=== PATIENT | male | born 1960 | race Caucasian/White ===

== ENCOUNTER 2018-05-20 16:17 | Emergency (ER) | payer SELFPAY ==
[2018-05-20] MEDS ORDERED: IBUPROFEN 800 MG TABLET PO ONE (17:00)
--- NOTE | 2018-05-20 17:33 | RADIOLOGY REPORT (SQ) ---
EXAM DESCRIPTION: HIP LEFT AP/LATERAL COMPLETED DATE/TIME: 05/20/2018 5:22 pm REASON FOR STUDY: pain COMPARISON: None. NUMBER OF VIEWS: Two views. TECHNIQUE: AP pelvis and additional frog-leg view of the left hip. LIMITATIONS: None. FINDINGS: MINERALIZATION: Normal. LEFT HIP: No fracture or dislocation. No worrisome bone lesions. RIGHT HIP: No fracture or dislocation. No worrisome bone lesions. PUBIS AND ISCHIUM: No fracture. PELVIS: No fracture. SACRUM: No fracture or dislocation. No worrisome bone lesions. LOWER LUMBAR SPINE: No fracture or dislocation. No worrisome bone lesions. No significant disc disea se. SOFT TISSUES: No findings. OTHER: No other significant finding. IMPRESSION: NEGATIVE STUDY OF THE LEFT HIP AND PELVIS. NO RADIOGRAPHIC EVIDENCE OF ACUTE INJURY. TECHNICAL DOCUMENTATION: JOB ID: [id number] [employer]- All Rights Reserved Reading location - IP/workstation name: [email or web address]
--- NOTE | 2018-05-20 17:56 | ER Document Report ---
ED Extremity Problem, Lower - General Chief Complaint: Hip Pain Stated Complaint: LEG PAIN Time Seen by Provider: 05/20/18 16:47 Primary Care Provider: [facility] [[facility]] - Follow up as needed GUS BUSCH [Primary Care Provider] - Follow up as needed Mode of Arrival: Ambulatory Information source: Patient Notes: 57-year-old male presented to ED for complaint of pain in his left hip and upper leg for the last 2-3 weeks. He states he is not had any injuries he does not know why he is hurting. Patient is alert oriented respirations regular and unlabored speaking in full sentences walks with a even steady gait. Patient states he does have some kind a history of a liver condition in the past but that was all cleared up and he does not have it anymore. TRAVEL OUTSIDE OF THE [place] IN LAST 30 DAYS: No - HPI Patient complains to provider of: Pain Location: Hip, Leg Occurred: Other - 2-3 weeks Onset/Duration: Gradual Quality of pain: Burning, Sharp Severity: Moderate Pain Level: 4 Recent injury: No Associated symptoms: Painful ambulation Exacerbated by: Movement, Walking Relieved by: Nothing - Related Data Allergies/Adverse Reactions: No Known Allergies Allergy (Verified 05/20/18 17:37) Past Medical History - General Information source: Patient - Social History Smoking Status: Current Every Day Smoker Cigarette use (# per day): Yes - Pack per day Chew tobacco use (# tins/day): No Smoking Education Provided: Yes - Minutes Frequency of alcohol use: Social Drug Abuse: Bath salts Occupation: Construction Lives with: Family Family History: Reviewed & Not Pertinent Patient has suicidal ideation: No Patient has homicidal ideation: No - Past Medical History Cardiac Medical History: Reports: None Pulmonary Medical History: Reports: None EENT Medical History: Reports: None Neurological Medical History: Reports: None Endocrine Medical History: Reports: None Renal/ Medical History: Reports: None Malignancy Medical History: Reports None GI Medical History: Reports: None Musculoskeletal Medical History: Reports Hx Musculoskeletal Trauma Skin Medical History: Reports None Psychiatric Medical History: Reports: None Traumatic Medical History: Reports: Hx Fractures - Ankle Infectious Medical History: Reports: None Past Surgical History: Reports: Hx Orthopedic Surgery - ankle - Immunizations Immunizations up to date: Yes Hx Diphtheria, Pertussis, Tetanus Vaccination: Yes Review of Systems - Review of Systems Constitutional: No symptoms reported EENT: No symptoms reported Cardiovascular: No symptoms reported Respiratory: No symptoms reported Gastrointestinal: No symptoms reported Genitourinary: No symptoms reported Male Genitourinary: No symptoms reported Musculoskeletal: Joint pain - Left hip/groin pain. denies: Joint swelling Skin: No symptoms reported Hematologic/Lymphatic: No symptoms reported Neurological/Psychological: No symptoms reported Physical Exam - Vital signs Vitals: Temp Pulse Resp BP Pulse Ox 98.4 F 94 16 194/99 H 99 05/20/18 16:36 05/20/18 16:36 05/20/18 16:36 05/20/18 16:36 05/20/18 16:36 Interpretation: Hypertensive - General General appearance: Appears well, Alert - HEENT Head: Normocephalic, Atraumatic Eyes: Normal Pupils: PERRL - Respiratory Respiratory status: No respiratory distress Chest status: Nontender Breath sounds: Normal Chest palpation: Normal - Cardiovascular Rhythm: Regular Heart sounds: Normal auscultation Murmur: No - Abdominal Inspection: Normal Distension: No distension Bowel sounds: Normal Tenderness: Nontender Organomegaly: No organomegaly - Back Back: Normal, Nontender - Extremities General upper extremity: Normal inspection, Nontender, Normal color, Normal ROM, Normal temperature General lower extremity: Normal inspection, Nontender, Normal color, Normal ROM, Normal temperature, Normal weight bearing. No: Evon's sign Hip: Tender, Pain with ROM, Other - Patient's pain is at the site of his bursa. No: Unable to bear weight Thigh: Normal Knee: Normal Calf: Normal Ankle: Normal Foot: Normal - Neurological Neuro grossly intact: Yes Cognition: Normal Orientation: AAOx4 Walton Coma Scale Eye Opening: Spontaneous Clarisse Coma Scale Verbal: Oriented Walton Coma Scale Motor: Obeys Commands Walton Coma Scale Total: 15 Speech: Normal Motor strength normal: LUE, RUE, LLE, RLE Sensory: Normal - Psychological Associated symptoms: Normal affect, Normal mood - Skin Skin Temperature: Warm Skin Moisture: Dry Skin Color: Normal Course - Vital Signs Vital signs: Temp Pulse Resp BP Pulse Ox 97.9 F 88 16 184/96 H 100 05/20/18 17:57 05/20/18 17:57 05/20/18 17:57 05/20/18 17:57 05/20/18 17:57 - Diagnostic Test Radiology reviewed: Image reviewed, Reports reviewed Discharge - Discharge Clinical Impression: Left hip pain Condition: Stable Disposition: HOME, SELF-CARE Instructions: Family Physicians / Practices Additional Instructions: Bursitis You have been diagnosed as having bursitis. Bursitis is an inflammation of a fluid pouch (bursa) found near joints. This is usually due to repeated minor irritation, or pressure directly on the bursa. On occasion, the bursitis can be due to infection (your doctor has checked for this). Sometimes the doctor decides to remove the fluid from the bursa with a needle. This may be to examine the fluid for infection or to ease the pressure caused by the fluid. The usual treatment is rest, local warmth, (or cold if the bursitis is caused by an acute injury), and antiinflammatory medication. Occasionally, an injection of cortisone is necessary. You should call the doctor for re-examination if the pain increases significantly, or if the area becomes severely swollen and red, or fever develops. Anti-Inflammatory Medication You have received a prescription for an antiinflammatory agent. This is an excellent, safe drug for pain control. In addition, it has potent antiinflammatory effects which are beneficial, especially in the treatment of injuries, arthritis, or tendonitis. It's best to take this medicine with food. Persons with ulcer disease or allergy to aspirin should notify their physician of this before taking this drug. Take the medication exactly as prescribed. Don't take additional doses unless instructed to do so by your doctor. If you develop wheezing, shortness of breath, hives, faintness, stomach pain, vomiting, or dark black stools, return for re-evaluation at once. Ice Packs Apply ice packs frequently against the painful area. Many different schedules are recommended, such as "20 minutes on, 20 minutes off" or "one hour ice, two hours rest." If you need to work, you may need to go longer between ice treatments. You should plan to have the area ice packed AT LEAST one fourth of the time. The ice should be applied over the wrap, tape, or splint, or over a layer of cloth -- not directly against the skin. Some ice bags have a built-in cloth and can be put directly on the skin. Warm Packs After approximately two days, apply gentle heat (such as a heating pad or hot water bottle) for about 20 to 30 minutes about every two hours -- at least four times daily. Warmth and elevation will help you make a more rapid recovery, and will ease the pain considerably. Do not use HOT heat, and never apply heat for longer than 30 minutes. The continuous heat can invisibly damage skin and muscles -- even when no burn is seen on the surface. Damaged muscles can make you MORE sore. FOLLOW-UP CARE: If you have been referred to a physician for follow-up care, call the physicians office for an appointment as you were instructed or within the next two days. If you experience worsening or a significant change in your symptoms, notify the physician immediately or return to the Emergency Department at any time for re-evaluation. Forms: Elevated Blood Pressure, Smoking Cessation Education, Return to Work Referrals: NARAYAN,NO [Primary Care Provider] - Follow up as needed [facility] [Provider [facility]] - Follow up as needed
[2018-05-20 17:59] VITALS: BP 184/96
== END 2018-05-20 18:17 | disposition home or self-care (01) ==
LOC: ER 16:17
DX: M25.552 Pain in left hip (principal); M79.605 Pain in left leg; F17.210 Nicotine dependence, cigarettes, uncomplicated
CPT/HCPCS: 99283

== ENCOUNTER 2018-06-09 17:35 | Emergency (ER) | payer SELFPAY ==
[2018-06-09 19:36] LABS: ABSOLUTE EOSINOPHILS # (AUTO) 0.1 10^3/uL (0.0-0.6); ABSOLUTE LYMPHOCYTES (AUTO) 0.4 10^3/uL (0.5-4.7); ABSOLUTE MONOCYTES (AUTO) 0.5 10^3/uL (0.1-1.4); ABSOLUTE NEUT (AUTO) 3.6 10^3/uL (1.7-8.2); BASOPHILS % (AUTO) 0.7 % (0-2); HEMATOCRIT 44.5 % (37.9-51.0); HEMOGLOBIN 15.2 g/dL (13.5-17.0); LYMPHOCYTES % (AUTO) 9.3 % (13-45); MEAN CORPUSCULAR HEMOGLOBIN 31.6 pg (27.0-33.4); MEAN CORPUSCULAR HGB CONC 34.2 g/dL (32.0-36.0); MEAN CORPUSCULAR VOLUME 92 fl (80-97); MONOCYTES % (AUTO) 9.8 % (3-13); RED BLOOD COUNT 4.83 10^6/uL (4.35-5.55); RED CELL DISTRIBUTION WIDTH 14.1 % (11.5-14.0); SEGMENTED NEUTROPHILS % (AUTO) 78.2 % (42-78); TOTAL CELLS COUNTED % (AUTO) 100 %; WHITE BLOOD COUNT 4.6 10^3/uL (4.0-10.5)
[2018-06-09 19:48] LABS: ALANINE AMINOTRANSFERASE 161 U/L (21-72); ALBUMIN 3.6 g/dL (3.5-5.0); ALKALINE PHOSPHATASE 120 U/L (38-126); ANION GAP 10 (5-19); ASPARTATE AMINO TRANSFERASE 123 U/L (17-59); BILIRUBIN,DIRECT 0.2 mg/dL (0.0-0.4); BILIRUBIN,TOTAL 0.6 mg/dL (0.2-1.3); BLOOD UREA NITROGEN 27 mg/dL (7-20); CALCIUM 9.5 mg/dL (8.4-10.2); CARBON DIOXIDE 23 mmol/L (22-30); CHLORIDE 106 mmol/L (98-107); GLUCOSE 185 mg/dL (75-110); POTASSIUM 4.2 mmol/L (3.6-5.0); SODIUM 139.2 mmol/L (137-145)
[2018-06-09 19:52] LABS: PLATELET COUNT 66 10^3/uL (150-450)
--- NOTE | 2018-06-09 19:56 | RADIOLOGY REPORT (SQ) ---
EXAM DESCRIPTION: HIP LEFT AP/LATERAL COMPLETED DATE/TIME: 06/09/2018 7:46 pm REASON FOR STUDY: left hip pain COMPARISON: 05/20/2018 NUMBER OF VIEWS: Two views. TECHNIQUE: AP pelvis and additional frog-leg view of the left hip. LIMITATIONS: None. FINDINGS: MINERALIZATION: Normal. LEFT HIP: There is no fracture. There is some vague lucency in the intertrochanteric region. This i s of undetermined significance. RIGHT HIP: Cystic changes. These appear to be benign. Mild degenerative changes of the hip. PUBIS AND ISCHIUM: No fracture. PELVIS: No fracture. SACRUM: No fracture or dislocation. No worrisome bone lesions. LOWER LUMBAR SPINE: No fracture or dislocation. No worrisome bone lesions. No significant disc disea se. SOFT TISSUES: No findings. OTHER: No other significant finding. IMPRESSION: There is some vague lucency in the intertrochanteric region of the left hip of uncertain significance. Recommend CT or MRI. TECHNICAL DOCUMENTATION: JOB ID: [id number] [employer]- All Rights Reserved Reading location - IP/workstation name: [email or web address]
--- NOTE | 2018-06-09 19:57 | RADIOLOGY REPORT (SQ) ---
EXAM DESCRIPTION: ABDOMEN 2 VIEWS COMPLETED DATE/TIME: 06/09/2018 7:46 pm REASON FOR STUDY: abd pain, constipation COMPARISON: None. NUMBER OF VIEWS: Two views. TECHNIQUE: Supine and erect/decubitus radiographic images of the abdomen acquired. LIMITATIONS: None. FINDINGS: FREE AIR: None. No abnormal gas collections. LUNG BASES: Clear. BOWEL GAS PATTERN: Nonobstructive pattern. No dilated loops or air fluid levels. CALCIFICATIONS: No suspicious calcifications. SOFT TISSUES: No gross mass or suggestion of organomegaly. HARDWARE: None in the abdomen. BONES: No acute fracture. No worrisome bone lesions. OTHER: No other significant finding. IMPRESSION: NO RADIOGRAPHIC EVIDENCE FOR ACUTE ABDOMINAL DISEASE. No constipation. TECHNICAL DOCUMENTATION: JOB ID: [id number] [employer]- All Rights Reserved Reading location - IP/workstation name: [email or web address]
--- NOTE | 2018-06-09 20:20 | ER Document Report ---
ED General - General Chief Complaint: Constipation Stated Complaint: HIP PAIN/CONSTIPATION Time Seen by Provider: 06/09/18 19:06 Notes: Patient is a 57-year-old male with a past medical history of alpha-1 antitrypsin deficiency with known liver abnormalities although has never been formally diagnosed with liver failure cirrhosis, presents with 2 distinct complaints. His first complaint is that he has had 1 month of left hip pain. He was seen in the emergency room and approximately 20 days ago for the same, diagnosed the left hip bursitis. He states that the pain has however been getting worse and at this point he can hardly walk secondary to the pain in the left hip. This is described as a throbbing, constant, aching pain worsened by any weightbearing. He also notes that for the past 1 month he has had increasing abdominal swelling and fullness. He states that it is a global, cramping, aching pain worsened by coughing, moving or pushing on the abdomen. He notes associated nausea and decreased bowel movements but has not had any vomiting. Denies fever or constitutional symptoms. He denies any history of similar symptoms in the past. He does not have a primary care doctor. Denies melena, hematochezia or hematemesis. TRAVEL OUTSIDE OF THE [place] IN LAST 30 DAYS: No - Related Data Allergies/Adverse Reactions: No Known Allergies Allergy (Verified 05/20/18 17:37) Past Medical History - General Information source: Patient - Social History Smoking Status: Current Every Day Smoker Frequency of alcohol use: None Drug Abuse: None Lives with: Spouse/Significant other Family History: Reviewed & Not Pertinent Patient has suicidal ideation: No Patient has homicidal ideation: No Endocrine Medical History: Denies: Hx Diabetes Mellitus Type 1, Hx Diabetes Mellitus Type 2 Renal/ Medical History: Denies: Hx Peritoneal Dialysis Musculoskeletal Medical History: Reports Hx Musculoskeletal Trauma Traumatic Medical History: Reports: Hx Fractures - Ankle Past Surgical History: Reports: Hx Orthopedic Surgery - ankle - Immunizations Immunizations up to date: Yes Hx Diphtheria, Pertussis, Tetanus Vaccination: Yes Review of Systems - Review of Systems Notes: Constitutional: Negative for fever. HENT: Negative for sore throat. Eyes: Negative for visual changes. Cardiovascular: Negative for chest pain. Respiratory: Negative for shortness of breath. Gastrointestinal: Positive for abdominal pain, swelling and fullness Genitourinary: Negative for dysuria. Musculoskeletal: Positive for left hip pain Skin: Negative for rash. Neurological: Negative for headaches, weakness or numbness. 10 point ROS negative except as marked above and in HPI. Physical Exam - Vital signs Vitals: Temp Pulse Resp BP Pulse Ox 98.1 F 97 20 166/108 H 96 06/09/18 18:00 06/09/18 18:00 06/09/18 18:00 06/09/18 18:00 06/09/18 18:00 Interpretation: Hypertensive Notes: PHYSICAL EXAMINATION: GENERAL: Appears older than stated age, in no acute distress HEAD: Atraumatic, normocephalic. EYES: Pupils equal round and reactive to light, extraocular movements intact, sclera anicteric, conjunctiva are normal. ENT: nares patent, oropharynx clear without exudates. Moderately dry mucous membranes. NECK: Normal range of motion, supple without lymphadenopathy LUNGS: Breath sounds clear to auscultation bilaterally and equal. No wheezes rales or rhonchi. HEART: Regular rate and rhythm without murmurs ABDOMEN: Somewhat distended, protuberant abdomen. No focal tenderness, rebound or guarding. EXTREMITIES: Normal range of motion, pain on palpation of the inguinal crease on the left as well as palpation of the left hip joint. Pain with axial loading of the left hip. Extremity exam otherwise unremarkable. NEUROLOGICAL: No focal neurological deficits. Moves all extremities spontaneously and on command. PSYCH: Normal mood, normal affect. SKIN: Warm, Dry, normal turgor, no rashes or lesions noted. Course - Re-evaluation Re-evalutation: 06/09/18 20:20 Patient presents with swelling of the abdomen worrisome for development of ascites in the setting of liver failure secondary to alpha-1 antitrypsin deficiency as well as left hip pain. The x-ray of the left hip shows an abnormal lucency in the hip joint itself and a CT will be obtained to better clarify. Will also obtain a CT of the abdomen and pelvis to further clarify the patient abdominal swelling and pain. Initial laboratories show LFT derangements, no significant bilirubin derangements. Thrombocytopenia also noted consistent with liver failure. 06/10/18 00:21 CT scan of the abdomen and pelvis as well as of the chest and hip unfortunately shows a picture consistent with metastatic cancer undifferentiated at this point of the likely primary from liver or lung. I have discussed the case with Dr. Bhandari the oncologist geographic information systems engineer who will follow the patient up in clinic in the coming days. I have also reviewed the results with the patient and informed him of the need for outpatient oncology follow-up. Per imitations of the oncologist have added on PSA and CEA levels. I have also placed a request for social work. At this time will discharge with return precautions and follow-up recommendations. Verbal discharge instructions given a the bedside and opportunity for questions given. Medication warnings reviewed. Patient is in agreement with this plan and has verbalized understanding of return precautions and the need for oncology follow-up within the next 24-48 hours. - Vital Signs Vital signs: Temp Pulse Resp BP Pulse Ox 98.1 F 97 20 166/108 H 96 06/09/18 18:00 06/09/18 18:00 06/09/18 18:00 06/09/18 18:00 06/09/18 18:00 - Laboratory Result Diagrams: 06/09/18 19:22 06/09/18 19:22 Laboratory results interpreted by me: 06/09/18 06/09/18 19:22 19:22 RDW 14.1 H Plt Count 66 L Seg Neutrophils % 78.2 H Lymphocytes % 9.3 L Absolute Lymphocytes 0.4 L BUN 27 H Glucose 185 H AST 123 H ALT 161 H - Diagnostic Test Radiology reviewed: Image reviewed, Reports reviewed Discharge - Discharge Clinical Impression: Lytic bone lesion of left femur, Liver masses, Lung mass, Abdominal swelling, generalized Condition: Fair Disposition: HOME, SELF-CARE Additional Instructions: Your workup today unfortunately suggest that you have metastatic cancer. I am very sorry to tell you this. You need to follow-up with the oncology clinic ideally tomorrow or the next day. I have already spoken tonight to Dr. Reba Bhandari who wants you to come to her office tomorrow or the next day for follow- up. Our social work will also contact you to help you try to arrange initiation of getting Medicaid. You have also been sent home with pain medication to use as needed for your left hip pain. Return if you have uncontrolled pain, persistent vomiting, pass out, or have any other symptoms that are worrisome to you. Referrals: REBA BHANDARI MD [ACTIVE STAFF] - Follow up tomorrow
--- NOTE | 2018-06-09 21:47 | RADIOLOGY REPORT (SQ) ---
EXAM DESCRIPTION: CT ABDOMEN PELVIS WITH IV CONTRAST COMPLETED DATE/TME: 06/09/2018 20:15 CLINICAL HISTORY: 57 years Male abdominal swelling, pain COMPARISON: None. TECHNIQUE: Contiguous axial images obtained through the abdomen and pelvis following IV contrast. Reformatted images obtained. This exam was performed according to our department optimization program which includes automated exposure control, adjustment of the mA and/or kv according to patient size and/or use of iterative reconstruction technique. FINDINGS: The liver is enlarged measuring 21.5 cm. There are multiple hepatic masses as well as diffuse fatty infiltration with areas of focal fatty sparing. Mass in the inferior aspect of the medial left lobe on image 27 measures 3.2 x 3.3 cm. Suspect additional masses in the left lobe more superiorly. Mass in the dome measures approximately 4.3 x 4.6 cm. Suspect additional masses may be present in the inferior lateral left lobe. Spleen is enlarged measuring 16.3 cm. No discrete pancreatic mass or pancreatic abnormality. No adrenal masses. The kidneys appear unremarkable. No hydronephrosis. The gallbladder is visualized. No evidence aortic aneurysm. There are numerous scattered prominent upper abdominal retroperitoneal and periportal lymph nodes. No bowel obstruction. The appendix is unremarkable. There is no evidence of free fluid in the pelvis. Diverticulosis without evidence of diverticulitis. There is a large lytic lesion in the proximal aspect of the left femur involving the neck and the intertrochanteric region with some cortical irregularity and destruction and a small associated soft tissue component. Findings are highly concerning for neoplasm and may reflect metastatic disease. An etiology such as lymphoma should also be considered IMPRESSION: Hepatic masses concerning for metastatic disease Splenic enlargement Scattered retroperitoneal upper abdominal lymphadenopathy which is nonspecific Lytic lesion with some cortical destruction and associated soft tissue component in the proximal left femur also concerning for neoplasm. Additional etiologies such as plasmacytoma or lymphoma not excluded.
--- NOTE | 2018-06-09 21:49 | RADIOLOGY REPORT (SQ) ---
EXAM DESCRIPTION: CT LOWER EXTREMITY WITHOUT IV CONTRAST COMPLETED DATE/TME: 06/09/2018 20:15 CLINICAL HISTORY: 57 years Male left hip xray abn, pain COMPARISON: None. TECHNIQUE: Contiguous axial CT images obtained through the left hip without IV contrast. Reformatted images obtained. This exam was performed according to our department optimization program which includes automated exposure control, adjustment of the mA and/or kv according to patient size and/or use of iterative reconstruction technique. FINDINGS: There is a large lytic area in the proximal femur involving the neck and intertrochanteric region with areas of cortical irregularity and destruction. There appears to be an associated soft tissue component anteriorly. Findings are highly suspicious for malignancy and may reflect metastatic disease. Mild narrowing of the joint space with subchondral sclerosis and cyst formation. Acetabulum and visualized segments of the inferior and superior pubic rami also appear intact. IMPRESSION: Large lytic lesion with associated cortical destruction and soft tissue component involving the proximal aspect of the femur. Findings are highly suspicious for malignancy and may reflect metastatic disease.. A definite pathologic fracture is not observed
--- NOTE | 2018-06-09 22:54 | RADIOLOGY REPORT (SQ) ---
EXAM DESCRIPTION: CT CHEST WITHOUT IV CONTRAST COMPLETED DATE/TME: 06/09/2018 22:01 CLINICAL HISTORY: 57 years, Male, malignancy, eval lung mass hx smoking COMPARISON: None. TECHNIQUE: 322 Images stored on PACS. All CT scanners at this facility use dose modulation, iterative reconstruction, and/or weight based dosing when appropriate to reduce radiation dose to as low as reasonably achievable (ALARA). [facility]: Dose Right [facility]: CareDose [facility]: Dose Right [facility]: Teradose 4D [facility]: [employer] LIMITATIONS: None. FINDINGS: No gross evidence for mediastinal or hilar adenopathy. The heart and pericardium are unremarkable. Small hiatal hernia. Limited evaluation of the upper abdomen shows splenomegaly at 15 cm. Probable fatty infiltrative change to the liver. Osseous structures are grossly intact. No pneumothorax. Severe emphysematous changes in the upper lobes and apices. Nodular irregular focus in the right lung apex measuring 11 x 17 x 6 mm. Linear extension to the pleural surface. No effusion. Lungs are otherwise clear. Airways are patent IMPRESSION: Severe emphysematous changes in the upper lobes and apices. Nodular focus in the right lung apex with linear extensions to the pleural surface. The nodular component measures approximately 11 x 17 x 6 mm. Please refer to below follow-up criteria. Small hiatal hernia. 2017 Fleischner Society Recommendations for Single Solid Lung Nodule Follow-Up based on size (average of long- and short-axis diameters) <6 mm Low-Risk Patient: No routine follow-up <6 mm High-Risk Patient: Optional CT at 12 months 6-8 mm Low-Risk Patient: CT at 6-[address] at 18-24 months 6-8 mm High-Risk Patient: CT at 6-[address] at 18-24 months >8 mm Low-Risk Patient: Consider CT, PET/CT or tissue sampling at 3 months >8 mm High-Risk Patient: Same as for low-risk patient . TECHNICAL DOCUMENTATION: Quality ID # [id number]: Final reports with documentation of one or more dose reduction techniques (e.g., Automated exposure control, adjustment of the mA and/or kV according to patient size, use of iterative reconstruction technique) copyright 2011 [employer]- All Rights Reserved
[2018-06-10] MEDS ORDERED: ONDANSETRON ODT 4 MG TAB (6 TAB/ER DISP) PO PRN (00:26)
[2018-06-10] MEDS ORDERED: HYDROCODONE/ACETAMINOPHEN 5-325 MG (6 TAB/ER DISP) PO PRN (00:26)
[2018-06-10] MEDS ORDERED: OXYCODONE-ACETAMINOPHEN 5-325 MG TABLET PO ONE (01:13)
[2018-06-10 01:26] LABS: CARCINOEMBRYONIC ANTIGEN 1.2 ng/mL (<3.0)
[2018-06-10 01:48] VITALS: BP 186/97
== END 2018-06-10 01:48 | disposition home or self-care (01) ==
LOC: ER 17:35
DX: M89.9 Disorder of bone, unspecified (principal); K76.89 Other specified diseases of liver; R91.8 Other nonspecific abnormal finding of lung field; R19.07 Generalized intra-abdominal and pelvic swelling, mass and lump; K59.00 Constipation, unspecified; M25.552 Pain in left hip; F17.200 Nicotine dependence, unspecified, uncomplicated
CPT/HCPCS: 36415; 71250; 74019; 74177; 80053; 82378; 84153; 85025; 99284

== ENCOUNTER 2018-06-13 08:50 | Day surgery (SDC) | payer SELFPAY ==
[2018-06-13 09:57] LABS: HEMATOCRIT 41.1 % (37.9-51.0); HEMOGLOBIN 14.2 g/dL (13.5-17.0); MEAN CORPUSCULAR HEMOGLOBIN 31.7 pg (27.0-33.4); MEAN CORPUSCULAR HGB CONC 34.6 g/dL (32.0-36.0); MEAN CORPUSCULAR VOLUME 92 fl (80-97); RED BLOOD COUNT 4.49 10^6/uL (4.35-5.55); RED CELL DISTRIBUTION WIDTH 13.7 % (11.5-14.0); WHITE BLOOD COUNT 3.2 10^3/uL (4.0-10.5)
[2018-06-13 09:58] LABS: INTERNATIONAL RATION (INR) 0.95; PROTHROMBIN TIME 13.2 SEC (11.4-15.4)
[2018-06-13 09:59] LABS: PARTIAL THROMBOPLASTIN TIME 34.3 SEC (23.5-35.8)
[2018-06-13 10:24] LABS: BLOOD UREA NITROGEN 21 mg/dL (7-20)
[2018-06-13 10:29] LABS: PLATELET COUNT 65 10^3/uL (150-450)
[2018-06-13] MEDS ORDERED: FENTANYL CITRATE INJ/PF 100 MCG/2 ML AMPUL ONE (11:02)
[2018-06-13] MEDS ORDERED: BUPIVACAINE HCL 0.5 % INJ/PF 30 ML SDV ONE (11:03)
--- NOTE | 2018-06-13 12:40 | RADIOLOGY REPORT (SQ) ---
EXAM DESCRIPTION: CT BIOPSY BONE DEEP; CT NEEDLE PLACEMENT COMPLETED DATE/TIME: 06/13/2018 12:01 pm REASON FOR STUDY: LYTIC LESION IN FEMUR; LYTIC LESION IN FEMUR, BONE BIOPSY K76.9 LIVER DISEASE, UN SPECIFIED R91.1 SOLITARY PULMONARY NODULE M89.9 DISORDER OF BONE, UNSPECIFIED COMPARISON: None. TECHNIQUE: CT guided biopsy of the lytic destructive bony lesion in the left femoral neck performed with conscious sedation. CT Fluoroscopy Time: 1.[address] scanners at this facility use dose modulation, iterative reconstruction, and/or weight based d osing when appropriate to reduce radiation dose to as low as reasonably achievable (ALARA). [facility]: Dose Right [facility]: CareDose [facility]: Dose Right [facility]: Teradose 4D [facility]: I [employer] RADIATION DOSE: mGy. FINDINGS: After obtaining informed consent and explaining the risks and benefits of conscious sedati on,the patient agreed to the procedure. Prior to the procedure, a time out was performed to verify th e patient's identity and planned procedure. IV pain control was administered and physician direction by the registered nurse using 125 micrograms of fentanyl. Physiologic monitoring was provided before, during, and after sedation. The total sedat ion time was 30 minutes. Documentation face to face time, the performing proceduralist, spent monitoring the patient: [address] scanning was performed to localize the percutaneous site for the biopsy approach. After sterile skin prep and local lidocaine for skin and deep tissue anesthesia, a coaxial 18 gauge b iopsy needle was used to obtain multiple cores of tissue. No immediate post procedure complications. The biopsy tissue was submitted to the lab in formalin. There were no immediate complications. Pathology is pending at the time of dictation. IMPRESSION: CT GUIDED BIOPSY OF THE LEFT PROXIMAL FEMUR LYTIC LESION PERFORMED WITHOUT IMMEDIATE COM PLICATION. PATHOLOGY PENDING. COMMENT: Quality ID 145: Final reports for procedures using fluoroscopy that document radiation exp osure indices, or exposure time and number of fluorographic images (if radiation exposure indices are not available) Patient medication list reviewed: Yes- Quality ID# [id number]:Eligible professional attests to documenting i n the medical record they obtained, updated, or reviewed the patient's current medications.. TECHNICAL DOCUMENTATION: JOB ID: [id number] Quality ID# [id number]: Final reports with documentation of one or more dose reduction techniques (e.g., Aut omated exposure control, adjustment of the mA and/or kV according to patient size, use of iterative r econstruction technique) 2010 [employer]- All Rights Reserved Reading location - IP/workstation name: [email or web address]
--- NOTE | 2018-06-13 12:40 | RADIOLOGY REPORT (SQ) ---
EXAM DESCRIPTION: CT BIOPSY BONE DEEP; CT NEEDLE PLACEMENT COMPLETED DATE/TIME: 06/13/2018 12:01 pm REASON FOR STUDY: LYTIC LESION IN FEMUR; LYTIC LESION IN FEMUR, BONE BIOPSY K76.9 LIVER DISEASE, UN SPECIFIED R91.1 SOLITARY PULMONARY NODULE M89.9 DISORDER OF BONE, UNSPECIFIED COMPARISON: None. TECHNIQUE: CT guided biopsy of the lytic destructive bony lesion in the left femoral neck performed with conscious sedation. CT Fluoroscopy Time: 1.[address] scanners at this facility use dose modulation, iterative reconstruction, and/or weight based d osing when appropriate to reduce radiation dose to as low as reasonably achievable (ALARA). [facility]: Dose Right [facility]: CareDose [facility]: Dose Right [facility]: Teradose 4D [facility]: AVST RADIATION DOSE: mGy. FINDINGS: After obtaining informed consent and explaining the risks and benefits of conscious sedati on,the patient agreed to the procedure. Prior to the procedure, a time out was performed to verify th e patient's identity and planned procedure. IV pain control was administered and physician direction by the registered nurse using 125 micrograms of fentanyl. Physiologic monitoring was provided before, during, and after sedation. The total sedat ion time was 30 minutes. Documentation face to face time, the performing proceduralist, spent monitoring the patient: [address] scanning was performed to localize the percutaneous site for the biopsy approach. After sterile skin prep and local lidocaine for skin and deep tissue anesthesia, a coaxial 18 gauge b iopsy needle was used to obtain multiple cores of tissue. No immediate post procedure complications. The biopsy tissue was submitted to the lab in formalin. There were no immediate complications. Pathology is pending at the time of dictation. IMPRESSION: CT GUIDED BIOPSY OF THE LEFT PROXIMAL FEMUR LYTIC LESION PERFORMED WITHOUT IMMEDIATE COM PLICATION. PATHOLOGY PENDING. COMMENT: Quality ID 145: Final reports for procedures using fluoroscopy that document radiation exp osure indices, or exposure time and number of fluorographic images (if radiation exposure indices are not available) Patient medication list reviewed: Yes- Quality ID# [id number]:Eligible professional attests to documenting i n the medical record they obtained, updated, or reviewed the patient's current medications.. TECHNICAL DOCUMENTATION: JOB ID: [id number] Quality ID# [id number]: Final reports with documentation of one or more dose reduction techniques (e.g., Aut omated exposure control, adjustment of the mA and/or kV according to patient size, use of iterative r econstruction technique) 2010 [employer]- All Rights Reserved Reading location - IP/workstation name: [email or web address]
[2018-06-13 13:26] VITALS: BP 166/91
== END 2018-06-13 13:05 | disposition home or self-care (01) ==
LOC: RAD 08:50
PROVIDERS: ATTEND Internal Medicine Medical Oncology
DX: C79.51 Secondary malignant neoplasm of bone (principal); R91.1 Solitary pulmonary nodule; K76.9 Liver disease, unspecified; F17.210 Nicotine dependence, cigarettes, uncomplicated; K59.00 Constipation, unspecified
CPT/HCPCS: 36415; 84520; 82565; 85027; 85610; 85730; 88342 ×2; 88341 ×2; 88305 ×2; 88313 ×2; 77012; 20225; J3490; J3010

== ENCOUNTER → 2018-06-24 | Outpatient (CLI) | payer SELFPAY ==
--- NOTE | 2018-06-24 16:33 | RADIOLOGY REPORT (SQ) ---
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 NUMBER OF VIEWS: Two views. TECHNIQUE: Two radiographic images acquired of the left femur to include hip and knee in at least on e projection. LIMITATIONS: None. FINDINGS: MINERALIZATION: There is heterogeneous mineralization in the intertrochanteric region of t he left hip. BONES: No acute fracture. No worrisome bone lesions. SOFT TISSUES: No obvious swelling or foreign body. OTHER: No other significant finding. IMPRESSION: Cannot exclude metastatic disease in the left hip. Consider bone scan for further evalu ation. TECHNICAL DOCUMENTATION: JOB ID: [id number] [employer]- All Rights Reserved Reading location - IP/workstation name: [email or web address]
--- NOTE | 2018-06-24 16:35 | RADIOLOGY REPORT (SQ) ---
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 NUMBER OF VIEWS: Two views. TECHNIQUE: AP pelvis and additional frog-leg view of the left hip. LIMITATIONS: None. FINDINGS: MINERALIZATION: Normal. LEFT HIP: Once again there is heterogeneous mineralization in the left hip. Cannot exclude nondispla zhane fracture of the greater trochanter. RIGHT HIP: There are areas of lucency in the femoral neck. PUBIS AND ISCHIUM: No fracture. PELVIS: No fracture. SACRUM: No fracture or dislocation. No worrisome bone lesions. LOWER LUMBAR SPINE: No fracture or dislocation. No worrisome bone lesions. No significant disc disea se. SOFT TISSUES: No findings. OTHER: No other significant finding. IMPRESSION: Cannot exclude neoplastic changes in the left hip. Cannot exclude fracture of the great er trochanter. There are areas of lucency in the right femoral neck. TECHNICAL DOCUMENTATION: JOB ID: [id number]- All Rights Reserved Reading location - IP/workstation name: [email or web address]
== END ==
LOC: RAD 14:29
PROVIDERS: ATTEND Radiology Radiation Oncology
DX: C79.51 Secondary malignant neoplasm of bone (principal)

== ENCOUNTER 2018-06-25 14:24 | Inpatient (IN) | payer SELFPAY ==
--- NOTE | 2018-06-25 15:21 | ER Document Report ---
ED Medical Screen (RME) - General Chief Complaint: Leg Pain Stated Complaint: LEFT LEG PAIN Time Seen by Provider: 06/25/18 15:11 Mode of Arrival: Wheelchair Information source: Patient, Relative Notes: Patient presents emergency department with complaints of severe left leg pain. Patient reports recently diagnosed with hepatic cancer metastasized. Reports he was at oncology receiving radiation therapy and they told him to come here due to the pain. X-ray was attempted yesterday without results because patient was unable to position himself. Patient reports he is here for the pain he is taking morphine p.o. Consult to Dr. Conner she advises IV Dilaudid for pain and place patient in a bed for full evaluation. I have greeted and performed a rapid initial assessment of this patient. A comprehensive ED assessment and evaluation of the patient, analysis of test results and completion of the medical decision making process will be conducted by additional ED providers. TRAVEL OUTSIDE OF THE [place] IN LAST 30 DAYS: No - Related Data Allergies/Adverse Reactions: No Known Allergies Allergy (Verified 06/25/18 14:26) Past Medical History - Social History Frequency of alcohol use: Social Drug Abuse: None - Past Medical History Cardiac Medical History: Denies: Hx Coronary Artery Disease, Hx Heart Attack, Hx Hypertension Pulmonary Medical History: Denies: Hx Asthma, Hx Bronchitis, Hx COPD, Hx Pneumonia Neurological Medical History: Denies: Hx Cerebrovascular Accident, Hx Seizures Endocrine Medical History: Denies: Hx Diabetes Mellitus Type 1, Hx Diabetes Mellitus Type 2 Renal/ Medical History: Denies: Hx Peritoneal Dialysis Musculoskeltal Medical History: Denies Hx Arthritis, Reports Hx Musculoskeletal Trauma Traumatic Medical History: Reports: Hx Fractures - Ankle Past Surgical History: Reports: Hx Orthopedic Surgery - R ankle - Immunizations Immunizations up to date: Yes Hx Diphtheria, Pertussis, Tetanus Vaccination: Yes History of Influenza Vaccine for 12/2016 - 05/2017 Season: No Physical Exam - Vital signs Vitals: Temp Pulse Resp BP Pulse Ox 97.9 F 88 18 160/94 H 94 06/25/18 14:31 06/25/18 14:31 06/25/18 14:31 06/25/18 14:31 06/25/18 14:31 Course - Vital Signs Vital signs: Temp Pulse Resp BP Pulse Ox 97.9 F 88 18 160/94 H 94 06/25/18 14:31 06/25/18 14:31 06/25/18 14:31 06/25/18 14:31 06/25/18 14:31
[2018-06-25] MEDS ORDERED: HYDROMORPHONE HCL INJ/PF 2 MG/ML AMPULE IV ONE ×3 (15:27→19:45)
--- NOTE | 2018-06-25 18:18 | ER Document Report ---
ED Extremity Problem, Lower - General Chief Complaint: Leg Pain Stated Complaint: LEFT LEG PAIN Time Seen by Provider: 06/25/18 18:17 Mode of Arrival: Wheelchair Information source: Patient, Relative Notes: HISTORY OF PRESENT ILLNESS: Patient is a 57-year-old male with a past medical history of alpha-1 antitrypsin deficiency with resulting lung cancer that is metastatic to the liver and pro ximal left femur who presents with acute worsening of his chronic left leg pain that began 4 days ago after a fall at home but worsened earlier while having targeted palliative radiation to his left femur. Location: Left leg Onset: Sudden 4 days ago Provocation: Movement, bearing weight Quality: Throbbing, aching Radiation: Down the leg Severity: Severe Timing: Constant Associated symptoms: No numbness/tingling of the extremity, no back pain REVIEW OF SYSTEMS: CONSTITUTIONAL : Denies fever or chills, no sweats. Denies recent illness. EENT: Denies eye, ear, throat, or mouth pain or symptoms. Denies nasal or sinus congestion. CARDIOVASCULAR: Denies chest pain. RESPIRATORY: Denies cough, cold, or chest congestion. Denies shortness of breath, difficulty breathing, or wheezing. GASTROINTESTINAL: Denies abdominal pain. Denies nausea, vomiting, or diarrhea. Denies constipation. GENITOURINARY: Denies difficulty urinating, painful urination, burning, frequency, or blood in urine. MUSCULOSKELETAL: Positive for left leg pain, denies swelling of the left leg. SKIN: Denies rash or skin lesions. HEMATOLOGIC : Denies easy bruising or bleeding. LYMPHATIC: Denies swollen, enlarged glands. NEUROLOGICAL: Denies altered mental status or loss of consciousness. Denies headache. Denies weakness or paralysis or loss of use of either side. Denies problems with gait or speech. Denies sensory or motor loss. PSYCHIATRIC: Denies anxiety or stress or depression. All other systems reviewed and negative. PHYSICAL EXAMINATION: GENERAL: Anxious-appearing, well-nourished and in no acute distress. HEAD: Atraumatic, normocephalic. No scalp deformity, depression, or crepitance. EYES: Pupils are 3 mm and equal/round/reactive to light, extraocular movements intact, sclera anicteric, conjunctiva are normal. ENT: Nares patent bilaterally, oropharynx clear without exudates or palatal petechia. Moist mucous membranes. No tonsil hypertrophy. NECK: Normal range of motion, supple without lymphadenopathy. LUNGS: Breath sounds present, equal, and clear to auscultation bilaterally. No wheezes, rales, or rhonchi. HEART: Regular rate and rhythm without murmurs, rubs, or gallops. 2+ peripheral pulses. Normal capillary refill. ABDOMEN: Soft, nontender, nondistended. Normoactive bowel sounds. No guarding, no rebound. No masses appreciated. BACK: Normal contour, no midline tenderness. Rectal exam deferred. GENITAL: Deferred. EXTREMITIES: Exquisite pain on palpation to the left proximal femur with restricted range of motion of the left leg secondary to pain. No pitting or e alyssa. No cyanosis. NEUROLOGICAL: No focal neurological deficits. Moves all extremities spontaneously and on command. PSYCH: Normal mood, normal affect. No suicidal thoughts/ideations. No homocidal thoughts/ideations. No hallucinations. SKIN: Warm, dry, normal turgor, no rashes or lesions noted. ASSESSMENT AND PLAN: This patient is a 57-year-old male who presents with acute on chronic left leg pain that could represent pathologic fracture. 1. Will obtain CT scan of the left femur. 2. Will give IV fentanyl for pain control. TRAVEL OUTSIDE OF THE [place] IN LAST 30 DAYS: No - Related Data Allergies/Adverse Reactions: No Known Allergies Allergy (Verified 06/25/18 14:26) Past Medical History - General Information source: Patient, Relative - Social History Smoking Status: Current Every Day Smoker Chew tobacco use (# tins/day): No Frequency of alcohol use: Social Drug Abuse: None Lives with: Family Family History: Reviewed & Not Pertinent Patient has suicidal ideation: No Patient has homicidal ideation: No - Past Medical History Cardiac Medical History: Reports: None Denies: Hx Coronary Artery Disease, Hx Heart Attack, Hx Hypertension Pulmonary Medical History: Reports: None Denies: Hx Asthma, Hx Bronchitis, Hx COPD, Hx Pneumonia EENT Medical History: Reports: None Neurological Medical History: Reports: None. Denies: Hx Cerebrovascular Accident, Hx Seizures Endocrine Medical History: Reports: None. Denies: Hx Diabetes Mellitus Type 1, Hx Diabetes Mellitus Type 2 Renal/ Medical History: Reports: None. Denies: Hx Peritoneal Dialysis Malignancy Medical History: Reports Hx Bone Cancer, Reports Hx Liver Cancer, Reports Hx Lung Cancer GI Medical History: Reports: None Musculoskeletal Medical History: Denies Hx Arthritis, Reports Hx Musculoskeletal Trauma Skin Medical History: Reports None Psychiatric Medical History: Reports: None Traumatic Medical History: Reports: Hx Fractures - Ankle Infectious Medical History: Reports: None Past Surgical History: Reports: Hx Orthopedic Surgery - R ankle - Immunizations Immunizations up to date: Yes Hx Diphtheria, Pertussis, Tetanus Vaccination: Yes Physical Exam - Vital signs Vitals: Temp Pulse Resp BP Pulse Ox 97.9 F 88 18 160/94 H 94 06/25/18 14:31 06/25/18 14:31 06/25/18 14:31 06/25/18 14:31 06/25/18 14:31 Course - Re-evaluation Re-evalutation: 06/25/18 22:42 CT scan consistent with pathologic fracture. Per orthopedic recommendations, the patient is safe to be admitted to this facility. Patient is admitted to the hospitalist. - Vital Signs Vital signs: Temp Pulse Resp BP Pulse Ox 97.9 F 88 18 160/94 H 94 06/25/18 14:31 06/25/18 14:31 06/25/18 14:31 06/25/18 14:31 06/25/18 14:31 - Diagnostic Test Radiology reviewed: Image reviewed, Reports reviewed - Consults Dr. Hager Time consulted: 21:14 - patient can be kept at this facility, admit to the hospitalist Dr. 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
[2018-06-25] MEDS ORDERED: FENTANYL CITRATE INJ/PF 100 MCG/2 ML AMPUL IV ONE (18:28)
--- NOTE | 2018-06-25 20:27 | RADIOLOGY REPORT (SQ) ---
EXAM DESCRIPTION: CT of the left femur without contrast CLINICAL HISTORY: 57 years Male; Pathologic fracture TECHNIQUE: Noncontrast CT of the left femur with multiplanar reformatting. Contrast: None All CT scans at this facility use dose modulation, iterative reconstruction, and/or weight based dosing when appropriate to reduce radiation dose to as low as reasonably achievable. COMPARISON: CT 06/09/2018 FINDINGS: Previously demonstrated lytic lesion in the left femoral neck and intertrochanteric region is again noted. There is a new acute fracture through the femoral neck intertrochanteric region, along the posterior medial margin of the lytic lesion. The femoral neck is impacted into the intertrochanteric region approximately 12 mm. As on prior exam, there is loss of anterior cortex, with a soft tissue mass extending anteriorly at least 3 cm from the anterior cortex. No dislocation of the femoral head. The distal femoral shaft remains intact, with normal marrow density. IMPRESSION: 1. Acute impacted and slightly angulated pathologic fracture of the femoral neck and intertrochanteric region, at site of previously demonstrated lytic bone lesion.
[2018-06-25] MEDS ORDERED: FENTANYL 100 MCG/HR PATCH.TD72 TD ONE (21:15)
[2018-06-25] MEDS ORDERED: LIDOCAINE 5% (700 MG) TRANSDERMAL ADH..PATCH TP ONE (22:38)
[2018-06-25] MEDS ORDERED: IPRATROPIUM/ALBUTEROL 0.5-2.5 MG/3 ML AMPUL NEB PRN (22:43)
[2018-06-25] MEDS ORDERED: MAG HYDROX/AL HYDROX/SIMETH SUSP 30 ML UDCUP PO PRN (22:43)
[2018-06-25] MEDS ORDERED: MAGNESIUM HYDROXIDE SUSP 30 ML UDCUP PO PRN (22:43)
[2018-06-25] MEDS ORDERED: NA PHOS,M-B/NA PHOS,DI-BA (ADULT) 133 ML ENEMA PR PRN (22:50)
--- NOTE | 2018-06-25 23:07 | RADIOLOGY REPORT (SQ) ---
EXAM DESCRIPTION: XR CHEST 1 VIEW COMPLETED DATE/TME: 06/25/2018 22:40 CLINICAL HISTORY: 57 years, Male, Pre-op COMPARISON: Prior study from 06/09/2018 NUMBER OF VIEWS: One TECHNIQUE: Single frontal view of the chest was obtained portably LIMITATIONS: None. FINDINGS: Cardiac and mediastinal contours are normal in appearance. Lungs are clear. No pleural effusion or pneumothorax. IMPRESSION: No acute disease. copyright 2010 [employer]- All Rights Reserved
[2018-06-25] MEDS: NORMAL SALINE 1000 ML 1,000 ML IV PRN (23:10)
[2018-06-25] MEDS: FENTANYL CITRATE INJ/PF 100 MCG/2 ML AMPUL IV PRN (23:31)
--- NOTE | 2018-06-25 23:58 | EKG REPORT ---
SEVERITY:- ABNORMAL ECG - SINUS TACHYCARDIA ABNRM R PROG, CONSIDER ASMI OR LEAD PLACEMENT : Confirmed by: Analilia Carpenter 25-Jun-2018 23:56:29
--- NOTE | 2018-06-26 00:21 | PDOC H&P ---
History of Present Illness Admission Date/PCP: 06/25/18 22:48 Patient complains of: Intractable left thigh pain History of Present Illness: IAN SORENSON is a 57 year old male with a past medical history of alpha 1 antitrypsin deficiency, tobacco dependence and recent diagnosis of stage IV lung cancer with metastasis to liver and left femur. Under the care of Dr. Knowles undergoing palliative care with radiation to the hip. Patient presents 4 days after a fall at home during which she heard a popping sound followed by intractable pain. In the emergency room is found to have a pathological fracture of the left hip. He receives symptomatic management and referred to the hospitalist for admission. Patient denies chest pain, shortness of breath, nausea or vomiting. Complains of constipation. Past Medical History Cardiac Medical History: Reports: None Denies: Coronary Artery Disease, Myocardial Infarction, Hypertension Pulmonary Medical History: Reports: None Denies: Asthma, Bronchitis, Chronic Obstructive Pulmonary Disease (COPD), Pneumonia EENT Medical History: Reports: None Neurological Medical History: Reports: None Denies: Seizures Endocrine Medical History: Reports: None Denies: Diabetes Mellitus Type 1, Diabetes Mellitus Type 2 Renal/ Medical History: Reports: None Malignancy Medical History: Reports: Bone Cancer, Liver Cancer, Lung Cancer GI Medical History: Reports: None Musculoskeltal Medical History: Denies: Arthritis Skin Medical History: Reports: None Psychiatric Medical History: Reports: None, Tobacco Dependency Hematology: Denies: Anemia Infectious Medical History: Reports: None Past Surgical History Past Surgical History: Reports: Orthopedic Surgery - R ankle Social History Information Source: Patient Lives with: Family Smoking Status: Current Every Day Smoker Frequency of Alcohol Use: None - Advance Directive Resuscitation Status: Do Not Resuscitate Family History Family History: COPD Parental Family History Reviewed: Yes Children Family History Reviewed: Yes Sibling(s) Family History Reviewed.: Yes Medication/Allergy Home Medications: Morphine Sulfate [Morphine Ir 15 mg Tablet] 06/13/18 Oxycodone HCl 5 mg PO 06/13/18 Allergies/Adverse Reactions: No Known Allergies Allergy (Verified 06/25/18 14:26) Review of Systems Constitutional: PRESENT: as per HPI, anorexia, fatigue, weakness, weight loss. ABSENT: fever(s) Eyes: ABSENT: visual disturbances Ears: ABSENT: hearing changes Cardiovascular: ABSENT: chest pain, dyspnea on exertion, edema, orthropnea, palpitations Respiratory: ABSENT: cough, hemoptysis Gastrointestinal: PRESENT: as per HPI, abdominal pain, constipation, nausea. ABSENT: diarrhea, dysphagia, vomiting Genitourinary: ABSENT: dysuria, hematuria Musculoskeletal: PRESENT: as per HPI. ABSENT: joint swelling Integumentary: ABSENT: rash, wounds Neurological: ABSENT: abnormal gait, abnormal speech, confusion, dizziness, focal weakness, syncope Psychiatric: ABSENT: anxiety, depression, homidical ideation, suicidal ideation Endocrine: ABSENT: cold intolerance, heat intolerance, polydipsia, polyuria Hematologic/Lymphatic: ABSENT: easy bleeding, easy bruising Physical Exam Vital Signs: Temp Pulse Resp BP Pulse Ox 97.9 F 88 18 160/94 H 94 06/25/18 14:31 06/25/18 14:31 06/25/18 14:31 06/25/18 14:31 06/25/18 14:31 Intake & Output 06/24/18 06/25/18 06/26/18 11:59 11:59 11:59 Weight 87 kg General appearance: PRESENT: cooperative, severe distress, thin. ABSENT: disheveled Head exam: PRESENT: atraumatic, normocephalic Eye exam: PRESENT: conjunctiva pink, EOMI, PERRLA. ABSENT: scleral icterus Mouth exam: PRESENT: moist, tongue midline Neck exam: ABSENT: carotid bruit, JVD, lymphadenopathy, thyromegaly Respiratory exam: PRESENT: clear to auscultation kd. ABSENT: rales, rhonchi, wheezes Cardiovascular exam: PRESENT: RRR. ABSENT: diastolic murmur, rubs, systolic murmur Pulses: PRESENT: normal dorsalis pedis pul Vascular exam: PRESENT: normal capillary refill GI/Abdominal exam: PRESENT: ascites, hypoactive bowel sounds, soft. ABSENT: guarding, rigid, tenderness Rectal exam: PRESENT: deferred Extremities exam: PRESENT: pedal edema, tenderness, +1 edema. ABSENT: full ROM Neurological exam: PRESENT: alert, awake, oriented to person, oriented to place, oriented to time, oriented to situation, CN II-XII grossly intact. ABSENT: motor sensory deficit Psychiatric exam: PRESENT: appropriate affect, normal mood. ABSENT: homicidal ideation, suicidal ideation Skin exam: PRESENT: dry, erythema, intact, petechiae, warm. ABSENT: cyanosis, rash Results Impressions: Lower Extremity CT 06/25/18 18:28 IMPRESSION: 1. Acute impacted and slightly angulated pathologic fracture of the femoral neck and intertrochanteric region, at site of previously demonstrated lytic bone lesion. Chest X-Ray 06/25/18 22:40 IMPRESSION: No acute disease. 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 Patient's CODE STATUS is DNR while receiving palliative care and consideration of hospice. Goal of surgery is to minimize pain. (2) Constipation Is this a current diagnosis for this admission?: Yes Plan: Fleet enema, and daily lactulose. (3) Lung cancer Is this a current diagnosis for this admission?: Yes Plan: Hospice consult. - Time Time Spent with patient: 25-34 minutes - Inpatient Certification Medical Necessity: Need Close Monitoring Due to Risk of Patient Decompensation
[2018-06-26 02:45] LABS: ABSOLUTE EOSINOPHILS # (AUTO) 0.1 10^3/uL (0.0-0.6); ABSOLUTE LYMPHOCYTES (AUTO) 0.5 10^3/uL (0.5-4.7); ABSOLUTE MONOCYTES (AUTO) 0.5 10^3/uL (0.1-1.4); ABSOLUTE NEUT (AUTO) 2.7 10^3/uL (1.7-8.2); BASOPHILS % (AUTO) 0.9 % (0-2); EOSINOPHILS % (AUTO) 2.7 % (0-6); HEMATOCRIT 42.2 % (37.9-51.0); HEMOGLOBIN 14.3 g/dL (13.5-17.0); LYMPHOCYTES % (AUTO) 12.8 % (13-45); MEAN CORPUSCULAR HGB CONC 33.9 g/dL (32.0-36.0); MEAN CORPUSCULAR VOLUME 92 fl (80-97); RED CELL DISTRIBUTION WIDTH 14.3 % (11.5-14.0); SEGMENTED NEUTROPHILS % (AUTO) 70.6 % (42-78); TOTAL CELLS COUNTED % (AUTO) 100 %; WHITE BLOOD COUNT 3.8 10^3/uL (4.0-10.5)
[2018-06-26 02:48] LABS: INTERNATIONAL RATION (INR) 0.98; PROTHROMBIN TIME 13.5 SEC (11.4-15.4)
[2018-06-26 02:49] LABS: PARTIAL THROMBOPLASTIN TIME 35.8 SEC (23.5-35.8)
[2018-06-26 02:55] LABS: ALANINE AMINOTRANSFERASE 216 U/L (21-72); ALBUMIN 3.2 g/dL (3.5-5.0); ALKALINE PHOSPHATASE 118 U/L (38-126); ANION GAP 8 (5-19); ASPARTATE AMINO TRANSFERASE 157 U/L (17-59); BILIRUBIN,DIRECT 0.4 mg/dL (0.0-0.4); BILIRUBIN,TOTAL 0.8 mg/dL (0.2-1.3); BLOOD UREA NITROGEN 22 mg/dL (7-20); CALCIUM 8.9 mg/dL (8.4-10.2); CARBON DIOXIDE 23 mmol/L (22-30); CHLORIDE 105 mmol/L (98-107); CREATINE KINASE 34 U/L (55-170); GLUCOSE 107 mg/dL (75-110); POTASSIUM 4.5 mmol/L (3.6-5.0); SODIUM 135.5 mmol/L (137-145); TOTAL PROTEIN 6.5 g/dL (6.3-8.2)
[2018-06-26] MEDS: FENTANYL CITRATE INJ/PF 100 MCG/2 ML AMPUL IV PRN ×5 (02:55→20:18)
[2018-06-26 03:07] LABS: CREATINE KINASE MB 0.55 ng/mL (<4.55); TROPONIN I < 0.012 ng/mL
[2018-06-26 03:24] LABS: PLATELET COUNT 81 10^3/uL (150-450)
[2018-06-26] MEDS: NORMAL SALINE 1000 ML 1,000 ML IV PRN ×2 (03:40→12:25)
[2018-06-26] MEDS: HEPARIN SOD (PORCINE) 5,000 UNIT/ML 1 ML SYRINGE SUBCUT SCH ×3 (05:17→22:19)
[2018-06-26] MEDS: HYDROMORPHONE HCL 2 MG TABLET PO PRN ×3 (06:19→22:46)
--- NOTE | 2018-06-26 07:34 | PDOC CONSULTATION ---
Consultation Consult Date: 06/26/18 Consult reason:: Left proximal femur fracture, pathologic secondary to lung carcinoma History of Present Illness Admission Date/PCP: 06/25/18 22:48 History of Present Illness: IAN SORENSON is a 57 year old male 57-year-old white male with a metastatic process involving hepatic and pulmonary lesions with a pathologic fracture left proximal femur. Looking at the [facility] record there appears to been a CT-guided biopsy of the left proximal femoral lesion and subsequent pathology interpretation is consistent with metastatic carcinoma possible renal primary. In the interim the patient sustained acute onset pain and inability bear weight on left lower extremity x-rays in the emergency room demonstrate a pathologic fracture. Past Medical History Cardiac Medical History: Reports: None Denies: Coronary Artery Disease, Myocardial Infarction, Hypertension Pulmonary Medical History: Reports: None Denies: Asthma, Bronchitis, Chronic Obstructive Pulmonary Disease (COPD), Pneumonia EENT Medical History: Reports: None Neurological Medical History: Reports: None Denies: Seizures Endocrine Medical History: Reports: None Denies: Diabetes Mellitus Type 1, Diabetes Mellitus Type 2 Renal/ Medical History: Reports: None Malignancy Medical History: Reports: Bone Cancer, Liver Cancer, Lung Cancer GI Medical History: Reports: None Musculoskeltal Medical History: Denies: Arthritis Skin Medical History: Reports: None Psychiatric Medical History: Reports: None, Depression, Tobacco Dependency Hematology: Denies: Anemia Infectious Medical History: Reports: None Past Surgical History Past Surgical History: Reports: Orthopedic Surgery - R ankle Social History Information Source: Patient, [facility] Records Lives with: Family Smoking Status: Current Every Day Smoker Frequency of Alcohol Use: Occasional Drugs: Cocaine Hx Prescription Drug Abuse: No - Advance Directive Resuscitation Status: Do Not Resuscitate Family History Family History: COPD Parental Family History Reviewed: No Children Family History Reviewed: No Sibling(s) Family History Reviewed.: No Medication/Allergy Home Medications: Morphine Sulfate [Morphine Ir 15 mg Tablet] 06/13/18 Oxycodone HCl 5 mg PO 06/13/18 Allergies/Adverse Reactions: No Known Allergies Allergy (Verified 06/25/18 14:26) Review of Systems All systems: as per H Physical Exam Vital Signs: Temp Pulse Resp BP Pulse Ox 36.8 C 95 20 161/89 H 98 06/26/18 06:07 06/26/18 07:00 06/26/18 06:07 06/26/18 06:07 06/26/18 06:07 Intake & Output 06/25/18 06/26/18 06/27/18 06:59 06:59 06:59 Intake Total 1000 Balance 1000 Weight 92.1 kg Physical Exam: Patient is a relatively thin middle-aged white male with big davalos lying in bed. He is alert, conversant, and appropriate. His is nearby in the recliner. Left lower extremity shortening Rotated. General appearance: PRESENT: mild distress Head exam: PRESENT: normocephalic Respiratory exam: PRESENT: unlabored Cardiovascular exam: PRESENT: RRR Pulses: PRESENT: +1 pedal pulses bilateral Vascular exam: PRESENT: normal capillary refill GI/Abdominal exam: PRESENT: soft Extremities exam: PRESENT: other - Left lower extremity shortened and actually rotated. There is brisk capillary refill. Sensory examination is intact to light touch. Neurological exam: PRESENT: alert, awake, oriented to person, oriented to place, oriented to time, oriented to situation. ABSENT: motor sensory deficit Psychiatric exam: PRESENT: appropriate affect, normal mood. ABSENT: homicidal ideation, suicidal ideation Skin exam: PRESENT: dry, intact, warm. ABSENT: cyanosis, rash Results Laboratory Results: 06/26/18 02:25 06/26/18 02:25 06/26/18 06/26/18 02:25 02:25 WBC 3.8 L RBC 4.60 Hgb 14.3 Hct 42.2 MCV 92 MCH 31.0 MCHC 33.9 RDW 14.3 H Plt Count 81 L Seg Neutrophils % 70.6 Lymphocytes % 12.8 L Monocytes % 13.0 Eosinophils % 2.7 Basophils % 0.9 Absolute Neutrophils 2.7 Absolute Lymphocytes 0.5 Absolute Monocytes 0.5 Absolute Eosinophils 0.1 Absolute Basophils 0.0 Sodium 135.5 L Potassium 4.5 Chloride 105 Carbon Dioxide 23 Anion Gap 8 BUN 22 H Creatinine 0.94 Est GFR ( Amer) > 60 Est GFR (Non-Af Amer) > 60 Glucose 107 Calcium 8.9 Total Bilirubin 0.8 AST 157 H ALT 216 H Alkaline Phosphatase 118 Total Protein 6.5 Albumin 3.2 L 06/26/18 06/26/18 02:25 02:25 Creatine Kinase 34 L CK-MB (CK-2) 0.55 Troponin I < 0.012 Impressions: Lower Extremity CT 06/25/18 18:28 IMPRESSION: 1. Acute impacted and slightly angulated pathologic fracture of the femoral neck and intertrochanteric region, at site of previously demonstrated lytic bone lesion. Chest X-Ray 06/25/18 22:40 IMPRESSION: No acute disease. copyright 2011 [employer]- All Rights Reserved Status: Imported from PACS Assessment & Plan - Diagnosis (1) Pathological fracture of femur due to neoplastic disease Qualifiers: Encounter type: initial encounter Laterality: left Qualified Code(s): M84.552A - Pathological fracture in neoplastic disease, left femur, initial encounter for fracture Is this a current diagnosis for this admission?: Yes Plan: 57-year-old white male with widely metastatic carcinoma of uncertain etiology at this point. In the electronic record is documented as lung carcinoma but the pathologic interpretation is consistent with renal cell carcinoma. I discussed this with the pathologist later today. I think the patient deserves a phong nstruction of the left hip when he is medically cleared. The options would either be a cephalo-medullary nail which will be limited by proximal bone stock in the femoral neck and head versus a longstem cemented hemiarthroplasty. In either case it is a surgery that should last less than an hour with 100 cc of blood loss and can be performed under regional anesthetic. - Time Time Spent: 50 to 70 Minutes Anticipated discharge: Other Within: Other
[2018-06-26] MEDS: IPRATROPIUM/ALBUTEROL 0.5-2.5 MG/3 ML AMPUL NEB SCH ×2 (07:46→19:53)
[2018-06-26] MEDS: DOCUSATE SODIUM 100 MG CAPSULE PO SCH ×2 (09:07→17:18)
[2018-06-26 10:35] LABS: TROPONIN I < 0.012 ng/mL
[2018-06-26 15:23] LABS: CREATINE KINASE MB 0.78 ng/mL (<4.55)
[2018-06-26 15:25] LABS: TROPONIN I < 0.012 ng/mL
--- NOTE | 2018-06-26 17:44 | CONSULTATION REPORT E ---
Consultation Report NAME: IAN SORENSON : 1960 AGE: 57Y DATE: 06/26/2018 434 A TO: AASHISH BUCIO M.D. FROM: IAN KNOX M.D. Requesting Physician REASON FOR CONSULTATION: Metastatic carcinoma. HISTORY OF PRESENT ILLNESS: The patient is a 57-year-old who had presented June 11, 2018, with multiple liver lesions, lytic bone lesions on x-ray. He had a biopsy of the bone lesion, June 13, 2018. Pathology was said to be consistent with metastatic carcinoma, initially thought to favor renal cell, but later said to be more consistent with hepatocellular cancer. As part of his workup, AFP tumor marker was 57,713, painting a picture suggesting hepatocellular cancer. He has a prior history of hep C. His main symptom on presentation was pain in his hip. He was referred to Radiation Oncology and was started on palliative radiation to the hip. He presented to be evaluated to start treatment with Nexavar/sorafenib. Unfortunately, he tripped and injured his left femur. Admitted into the hospital, seen by Dr. Escalona with plans of palliative surgery to his left hip. He states that he feels much better since hospitalization, but he still has a lot of pain in his hip. PAST MEDICAL HISTORY: As stated above, includes history of: 1. High blood pressure. 2. Hepatitis C. 3. He smokes cigarettes. PAST SURGICAL HISTORY: Orthopedic surgery to his right ankle. REVIEW OF SYSTEMS: As stated above, mainly pain in his hip. PHYSICAL EXAMINATION: On exam, he is a middle-aged man, frail, lying in bed. No complaints of pain. DIAGNOSTICS: CAT scan of the left femur June 25, 2018: Acute impacted and slightly angulated pathologic fracture of the femoral neck and intratrochanteric region at site of previously demonstrated lytic bone lesion. IMPRESSION AND PLAN: The patient is a 57-year-old with metastatic hepatocellular cancer, given the pathology findings and the markedly elevated AFP. He was receiving palliative radiation to the bone lesion, and in the process of being seen by Orthopedics. Unfortunately, he now has an angulated pathologic fracture. Seen by Dr. Escalona during this hospitalization. I agree with surgical intervention being planned. The plan remains *------* for treatment of his hepatocellular cancer. Unfortunately he has no insurance and we will try to obtain his medication through [facility]. I will be glad to follow him as an outpatient following his discharge from the hospital. I thank you for this consultation and allowing me to be part of his care. DICTATING PHYSICIAN: AASHISH BUCIO M.D. [id number] PHY#: [id number] ID: [id number] JOB#: [id number] ACCT: [id number] cc:AASHISH BUCIO M.D. >
--- NOTE | 2018-06-26 17:51 | PDOC PROGRESS REPORT ---
Subjective Progress Note for:: 06/26/18 Subjective:: No adverse events overnight. No new complaints. Blood pressures have been elevated intermittently. Pain control has been mostly adequate. Eating and drinking without difficulty. Reason For Visit: LUNG CA W METS, PATHOLOGIC LEFT HIP FX Physical Exam Vital Signs: Temp Pulse Resp BP Pulse Ox 99.0 F 87 24 H 186/104 H 95 06/26/18 14:00 06/26/18 14:00 06/26/18 14:00 06/26/18 14:00 06/26/18 14:00 Intake & Output 06/25/18 06/26/18 06/27/18 06:59 06:59 06:59 Intake Total 1000 1000 Balance 1000 1000 Weight 92.1 kg General appearance: PRESENT: no acute distress, cooperative, disheveled Respiratory exam: PRESENT: clear to auscultation kd, symmetrical, unlabored. ABSENT: accessory muscle use, crackles, prolonged expiratory phas, rhonchi, tachypnea, wheezes Cardiovascular exam: PRESENT: RRR, +S1, +S2 Pulses: PRESENT: normal carotid pulses Vascular exam: PRESENT: normal capillary refill GI/Abdominal exam: PRESENT: normal bowel sounds, soft. ABSENT: distended, guarding, rebound, tenderness Extremities exam: PRESENT: tenderness - Left thigh. ABSENT: clubbing, pedal edema Musculoskeletal exam: PRESENT: deformity - Swelling left thigh Neurological exam: PRESENT: alert, awake, oriented to person, oriented to place, oriented to time, oriented to situation Psychiatric exam: PRESENT: appropriate affect, normal mood Skin exam: PRESENT: dry, warm Results Laboratory Results: 06/26/18 02:25 06/26/18 02:25 06/26/18 06/26/18 02:25 02:25 WBC 3.8 L RBC 4.60 Hgb 14.3 Hct 42.2 MCV 92 MCH 31.0 MCHC 33.9 RDW 14.3 H Plt Count 81 L Seg Neutrophils % 70.6 Lymphocytes % 12.8 L Monocytes % 13.0 Eosinophils % 2.7 Basophils % 0.9 Absolute Neutrophils 2.7 Absolute Lymphocytes 0.5 Absolute Monocytes 0.5 Absolute Eosinophils 0.1 Absolute Basophils 0.0 Sodium 135.5 L Potassium 4.5 Chloride 105 Carbon Dioxide 23 Anion Gap 8 BUN 22 H Creatinine 0.94 Est GFR ( Amer) > 60 Est GFR (Non-Af Amer) > 60 Glucose 107 Calcium 8.9 Total Bilirubin 0.8 AST 157 H ALT 216 H Alkaline Phosphatase 118 Total Protein 6.5 Albumin 3.2 L 06/26/18 06/26/18 06/26/18 02:25 02:25 09:09 Creatine Kinase 34 L 40 L CK-MB (CK-2) 0.55 Troponin I < 0.012 06/26/18 06/26/18 06/26/18 09:09 14:25 14:25 Creatine Kinase 45 L CK-MB (CK-2) 0.70 0.78 Troponin I < 0.012 < 0.012 Impressions: Lower Extremity CT 06/25/18 18:28 IMPRESSION: 1. Acute impacted and slightly angulated pathologic fracture of the femoral neck and intertrochanteric region, at site of previously demonstrated lytic bone lesion. Chest X-Ray 06/25/18 22:40 IMPRESSION: No acute disease. copyright 2011 [employer]- All Rights Reserved Assessment and Plan - Diagnosis (1) Pathological fracture of femur due to neoplastic disease Qualifiers: Encounter type: initial encounter Laterality: left Qualified Code(s): M84.552A - Pathological fracture in neoplastic disease, left femur, initial encounter for fracture Is this a current diagnosis for this admission?: Yes Plan: Orthopedics has recommended ORIF for stabilization and pain control. According to ACC/AHA guidelines, this is a moderate risk patient for a perioperative cardiac event. The patient told me that he understands the risks and would like to proceed with surgery. (2) Lung cancer Is this a current diagnosis for this admission?: Yes Plan: Hospice consult. - Time Time Spent with patient: 15-24 minutes
[2018-06-26] MEDS ORDERED: LISINOPRIL 10 MG TABLET PO ONE (18:30)
[2018-06-26] MEDS ORDERED: LORAZEPAM INJ 2 MG/1 ML VIAL IV ONE ×2 (22:50→23:45)
[2018-06-27] MEDS: HEPARIN SOD (PORCINE) 5,000 UNIT/ML 1 ML SYRINGE SUBCUT SCH ×3 (05:17→23:38)
--- NOTE | 2018-06-27 06:54 | PDOC PROGRESS REPORT ---
Subjective Progress Note for:: 06/27/18 Reason For Visit: LUNG CA W METS, PATHOLOGIC LEFT HIP FX Physical Exam Vital Signs: Temp Pulse Resp BP Pulse Ox 36.7 C 97 18 156/92 H 97 06/27/18 05:00 06/27/18 05:00 06/27/18 05:00 06/27/18 05:00 06/27/18 05:00 Intake & Output 06/25/18 06/26/18 06/27/18 06:59 06:59 06:59 Intake Total 1000 2460 Balance 1000 2460 Weight 92.1 kg 98.1 kg Results Laboratory Results: 06/26/18 02:25 06/26/18 02:25 06/26/18 06/26/18 06/26/18 02:25 02:25 09:09 Creatine Kinase 34 L 40 L CK-MB (CK-2) 0.55 Troponin I < 0.012 06/26/18 06/26/18 06/26/18 09:09 14:25 14:25 Creatine Kinase 45 L CK-MB (CK-2) 0.70 0.78 Troponin I < 0.012 < 0.012 Impressions: Lower Extremity CT 06/25/18 18:28 IMPRESSION: 1. Acute impacted and slightly angulated pathologic fracture of the femoral neck and intertrochanteric region, at site of previously demonstrated lytic bone lesion. Chest X-Ray 06/25/18 22:40 IMPRESSION: No acute disease. copyright 2010 [employer]- All Rights Reserved Assessment & Plan - Diagnosis (1) Pathological fracture of femur due to neoplastic disease Qualifiers: Encounter type: initial encounter Laterality: left Qualified Code(s): M84.552A - Pathological fracture in neoplastic disease, left femur, initial encounter for fracture Is this a current diagnosis for this admission?: Yes Plan: Tentative plan for an open reduction internal fixation of the left proximal femur fracture tomorrow morning at 0730. Intraoperative plan will include obtaining further tissue for pathologic diagnosis. Preoperative orders have been written. Patient understands the risks and benefits of surgery.
[2018-06-27] MEDS: FENTANYL CITRATE INJ/PF 100 MCG/2 ML AMPUL IV PRN ×3 (07:31→21:32)
[2018-06-27] MEDS: IPRATROPIUM/ALBUTEROL 0.5-2.5 MG/3 ML AMPUL NEB SCH ×2 (08:52→20:16)
[2018-06-27] MEDS: DOCUSATE SODIUM 100 MG CAPSULE PO SCH ×2 (11:27→17:54)
[2018-06-27] MEDS: LISINOPRIL 10 MG TABLET PO SCH (11:27)
[2018-06-27] MEDS: DIAZEPAM 5 MG TABLET PO SCH ×2 (11:27→17:53)
[2018-06-27] MEDS: HYDROMORPHONE HCL 2 MG TABLET PO PRN ×3 (11:30→23:42)
[2018-06-27] MEDS ORDERED: HYDRALAZINE HCL INJ/PF 20 MG/1 ML SDV ONE (16:09)
[2018-06-27] MEDS ORDERED: HYDRALAZINE HCL INJ/PF 20 MG/1 ML SDV IV ONE (17:00)
[2018-06-27] MEDS ORDERED: AMLODIPINE BESYLATE 10 MG TABLET PO ONE (20:01)
--- NOTE | 2018-06-27 20:04 | PDOC PROGRESS REPORT ---
Subjective Progress Note for:: 06/27/18 Subjective:: No adverse events overnight. No new complaints. His blood pressure has remained elevated today. Even when he said some pain medicine he still been hypertensive. He denies any headache or visual disturbances. Reason For Visit: LUNG CA W METS, PATHOLOGIC LEFT HIP FX Physical Exam Vital Signs: Temp Pulse Resp BP Pulse Ox 98.9 F 121 H 20 190/99 H 93 06/27/18 15:36 06/27/18 19:00 06/27/18 15:36 06/27/18 15:36 06/27/18 15:36 Intake & Output 06/26/18 06/27/18 06/28/18 06:59 06:59 06:59 Intake Total 1000 2660 889 Output Total 400 850 Balance 1000 2260 39 Weight 92.1 kg 98.1 kg General appearance: PRESENT: no acute distress, cooperative, disheveled Respiratory exam: PRESENT: clear to auscultation kd, symmetrical, unlabored. ABSENT: accessory muscle use, crackles, prolonged expiratory phas, rhonchi, tachypnea, wheezes Cardiovascular exam: PRESENT: RRR, +S1, +S2 Pulses: PRESENT: normal carotid pulses Vascular exam: PRESENT: normal capillary refill GI/Abdominal exam: PRESENT: normal bowel sounds, soft. ABSENT: distended, guarding, rebound, tenderness Extremities exam: PRESENT: tenderness - Left thigh. ABSENT: clubbing, pedal edema Musculoskeletal exam: PRESENT: deformity - Swelling left thigh Neurological exam: PRESENT: alert, awake, oriented to person, oriented to place, oriented to time, oriented to situation Psychiatric exam: PRESENT: appropriate affect, normal mood Skin exam: PRESENT: dry, warm Results Laboratory Results: 06/26/18 02:25 06/26/18 02:25 06/26/18 06/26/18 06/26/18 02:25 02:25 09:09 Creatine Kinase 34 L 40 L CK-MB (CK-2) 0.55 Troponin I < 0.012 06/26/18 06/26/18 06/26/18 09:09 14:25 14:25 Creatine Kinase 45 L CK-MB (CK-2) 0.70 0.78 Troponin I < 0.012 < 0.012 Impressions: Lower Extremity CT 06/25/18 18:28 IMPRESSION: 1. Acute impacted and slightly angulated pathologic fracture of the femoral neck and intertrochanteric region, at site of previously demonstrated lytic bone lesion. Chest X-Ray 06/25/18 22:40 IMPRESSION: No acute disease. copyright 2011 [employer]- All Rights Reserved Assessment and Plan - Diagnosis (1) Pathological fracture of femur due to neoplastic disease Qualifiers: Encounter type: initial encounter Laterality: left Qualified Code(s): M84.552A - Pathological fracture in neoplastic disease, left femur, initial encounter for fracture Is this a current diagnosis for this admission?: Yes Plan: Orthopedics was planning to take him to the OR tomorrow morning. Continue current pain control measures. (2) Lung cancer Is this a current diagnosis for this admission?: Yes Plan: Hospice consult. (3) Hypertension Qualifiers: Hypertension type: essential hypertension Qualified Code(s): I10 - Essential (primary) hypertension Is this a current diagnosis for this admission?: Yes Plan: Started some lisinopril this morning but he has remained hypertensive. I added some amlodipine this evening. - Time Time Spent with patient: 15-24 minutes
[2018-06-28] MEDS: FENTANYL CITRATE INJ/PF 100 MCG/2 ML AMPUL IV PRN (03:27)
[2018-06-28] MEDS ORDERED: TRANEXAMIC ACID INJ/PF 1,000 MG/10 ML SDV IV PRN (05:00)
[2018-06-28] MEDS ORDERED: CEFAZOLIN SODIUM 2 GM in DEXTROSE 5%-WATER 100 ML IV PRN (05:00)
[2018-06-28] MEDS: HEPARIN SOD (PORCINE) 5,000 UNIT/ML 1 ML SYRINGE SUBCUT SCH ×3 (05:31→21:27)
[2018-06-28] MEDS: RINGERS SOLUTION,LACTATED 1,000 ML IV PRN ×3 (05:33→18:00)
[2018-06-28] MEDS ORDERED: ACETAMINOPHEN 1,000 MG/100 ML RTUPB IV ONE (06:50)
[2018-06-28] MEDS ORDERED: PROMETHAZINE HCL INJ 25 MG/1 ML VIAL ONE (06:50)
[2018-06-28] MEDS ORDERED: PROPOFOL INJ 200 MG/20 ML VIAL IV ONE (06:50)
[2018-06-28] MEDS ORDERED: MIDAZOLAM 2 MG/2 ML INJ ONE (06:50)
[2018-06-28] MEDS ORDERED: FENTANYL CITRATE INJ/PF 100 MCG/2 ML AMPUL ONE (06:50)
[2018-06-28] MEDS ORDERED: ONDANSETRON HCL INJ/PF 4 MG/2 ML SDV ONE (06:50)
[2018-06-28] MEDS ORDERED: LIDOCAINE 2% INJ (20 MG/ML) 20 ML MDV ONE (06:51)
[2018-06-28] MEDS ORDERED: BUPIVACAINE HCL/DEX-WATER/PF 15 MG/2 ML AMPULE ONE (06:51)
[2018-06-28] MEDS ORDERED: BUPIVACAINE HCL 0.25% /EPINEPHRINE INJ/PF 30 ML SDV ONE (07:11)
[2018-06-28 08:12] LABS: INTERNATIONAL RATION (INR) 1.02; PROTHROMBIN TIME 13.9 SEC (11.4-15.4)
[2018-06-28 08:13] LABS: PARTIAL THROMBOPLASTIN TIME 36.6 SEC (23.5-35.8)
[2018-06-28 08:18] LABS: ANION GAP 7 (5-19); BLOOD UREA NITROGEN 22 mg/dL (7-20); CALCIUM 8.8 mg/dL (8.4-10.2); CARBON DIOXIDE 24 mmol/L (22-30); CHLORIDE 101 mmol/L (98-107); GLUCOSE 103 mg/dL (75-110); POTASSIUM 4.4 mmol/L (3.6-5.0)
[2018-06-28 08:22] LABS: ABSOLUTE LYMPHOCYTES (AUTO) 0.5 10^3/uL (0.5-4.7); ABSOLUTE MONOCYTES (AUTO) 0.8 10^3/uL (0.1-1.4); ABSOLUTE NEUT (AUTO) 3.8 10^3/uL (1.7-8.2); BASOPHILS % (AUTO) 0.4 % (0-2); EOSINOPHILS % (AUTO) 0.5 % (0-6); HEMATOCRIT 41.9 % (37.9-51.0); HEMOGLOBIN 14.2 g/dL (13.5-17.0); LYMPHOCYTES % (AUTO) 9.7 % (13-45); MEAN CORPUSCULAR HGB CONC 33.9 g/dL (32.0-36.0); MEAN CORPUSCULAR VOLUME 92 fl (80-97); MONOCYTES % (AUTO) 15.9 % (3-13); PLATELET COUNT 100 10^3/uL (150-450); RED BLOOD COUNT 4.57 10^6/uL (4.35-5.55); RED CELL DISTRIBUTION WIDTH 14.3 % (11.5-14.0); SEGMENTED NEUTROPHILS % (AUTO) 73.5 % (42-78); TOTAL CELLS COUNTED % (AUTO) 100 %; WHITE BLOOD COUNT 5.2 10^3/uL (4.0-10.5)
[2018-06-28] MEDS ORDERED: TRANEXAMIC ACID INJ/PF 1,000 MG/10 ML SDV IV ONE ×2 (08:38→12:30)
[2018-06-28] MEDS ORDERED: KETAMINE HCL INJ 500 MG/10 ML VIAL ONE (08:49)
[2018-06-28] MEDS: IPRATROPIUM/ALBUTEROL 0.5-2.5 MG/3 ML AMPUL NEB SCH ×2 (08:52→20:13)
[2018-06-28] MEDS ORDERED: DIPHENHYDRAMINE HCL 50 MG/ML VIAL IV PRN (09:13)
[2018-06-28] MEDS ORDERED: MEPERIDINE HCL/PF INJ 25 MG/1 ML DISP.SYRIN IV PRN (09:13)
[2018-06-28] MEDS ORDERED: PROMETHAZINE HCL INJ 25 MG/1 ML VIAL IV PRN ×2 (09:13)
[2018-06-28] MEDS ORDERED: MORPHINE SULFATE 10 MG/ML INJ IV PRN ×2 (09:13→09:58)
[2018-06-28] MEDS ORDERED: FENTANYL CITRATE INJ/PF 100 MCG/2 ML AMPUL IV PRN ×3 (09:13)
--- NOTE | 2018-06-28 09:43 | Operative Report ---
Operative Report DATE OF SURGERY: 06/28/18 PREOPERATIVE DIAGNOSIS: Pathologic fracture left proximal femur OPERATION: Open biopsy, open reduction internal fixation of left proximal femoral pathologic fracture SURGEON: YESENIA HARDWICK ANESTHESIA: Spinal TISSUE REMOVED OR ALTERED: Intramedullary contents to pathology ESTIMATED BLOOD LOSS: 100 PROCEDURE: With the patient supine on the fracture table the left lower extremities prepped and draped in sterile fashion. Under fluoroscopic guidance the limb is manipulated for near anatomic reduction. A pin is then placed percutaneously through the greater trochanter down into the proximal femoral medullary canal. A combined reamer is used to fashion a cortical opening. A Bermudez Ruy rondure was then advanced down into the proximal femur and multiple passes are taken for tissue for further diagnosis and therapy. A ball-tipped guide ebenezer was then placed down the femur and the femoral length measured to be 420 mm. Flexible reamers were then used to increase the medullary dynamic turgor to 12.5 mm. Subsequently a Alli gamma 3 nail 11 mm x 125 degrees x 120 mm advanced over the ball-tipped guide ebenezer for an appropriate proximal interlock. 90 mm proximal interlock was placed uneventfully. Freehand a 52.5 m distal interlock is placed. The wounds are irrigated with bulb lavage. The closure was interrupted Vicryl followed by susan. A sterile compressive dressing was applied and the patient's return to the PACU in satisfactory condition.
[2018-06-28] MEDS: ASPIRIN 81 MG TABLET, ENT COATED PO SCH (10:42)
[2018-06-28] MEDS: AMLODIPINE BESYLATE 10 MG TABLET PO SCH (10:42)
[2018-06-28] MEDS: LISINOPRIL 10 MG TABLET PO SCH (10:42)
[2018-06-28] MEDS: DIAZEPAM 5 MG TABLET PO SCH ×2 (10:42→18:01)
[2018-06-28] MEDS: DOCUSATE SODIUM 100 MG CAPSULE PO SCH ×2 (10:42→18:01)
--- NOTE | 2018-06-28 10:58 | RADIOLOGY REPORT (SQ) ---
EXAM DESCRIPTION: NO CHG FLUORO; HIP IN OPERATING RM COMPLETED DATE/TIME: 06/28/2018 10:18 am REASON FOR STUDY: ORIF LEFT HIP IN OR ASST WITH FLUORO IN OR COMPARISON: None. FLUOROSCOPY TIME: 0.7 minutes. 6 images saved to PACS. TECHNIQUE: Intra-operative images acquired during surgical procedure to evaluate progress. NUMBER OF IMAGES: 6 images. LIMITATIONS: None. FINDINGS: Images acquired during surgical fixation of the left hip fracture. IMPRESSION: IMAGE(S) OBTAINED DURING PROCEDURE. COMMENT: Quality ID [id number]: Final reports for procedures using fluoroscopy that document radiation exp osure indices, or exposure time and number of fluorographic images (if radiation exposure indices are not available) Please consult full operative report of the attending physician for description of the procedure. TECHNICAL DOCUMENTATION: JOB ID: [id number] [employer]- All Rights Reserved Reading location - IP/workstation name: [email or web address]
--- NOTE | 2018-06-28 10:59 | RADIOLOGY REPORT (SQ) ---
EXAM DESCRIPTION: NO CHG FLUORO; HIP IN OPERATING RM COMPLETED DATE/TIME: 06/28/2018 10:18 am REASON FOR STUDY: ORIF LEFT HIP IN OR ASST WITH FLUORO IN OR COMPARISON: None. FLUOROSCOPY TIME: 0.7 minutes. 6 images saved to PACS. TECHNIQUE: Intra-operative images acquired during surgical procedure to evaluate progress. NUMBER OF IMAGES: 6 images. LIMITATIONS: None. FINDINGS: Images acquired during surgical fixation of the left hip fracture. IMPRESSION: IMAGE(S) OBTAINED DURING PROCEDURE. COMMENT: Quality ID [id number]: Final reports for procedures using fluoroscopy that document radiation exp osure indices, or exposure time and number of fluorographic images (if radiation exposure indices are not available) Please consult full operative report of the attending physician for description of the procedure. TECHNICAL DOCUMENTATION: JOB ID: [id number] [employer]- All Rights Reserved Reading location - IP/workstation name: [email or web address]
[2018-06-28] MEDS: HYDROMORPHONE HCL 2 MG TABLET PO PRN ×2 (11:47→23:59)
[2018-06-28] MEDS: OXYCODONE HCL IR 5 MG TABLET PO PRN ×2 (13:05→23:59)
[2018-06-28] MEDS: ACETAMINOPHEN 325 MG TABLET PO PRN (15:23)
--- NOTE | 2018-06-28 17:40 | PDOC PROGRESS REPORT ---
Subjective Progress Note for:: 06/28/18 Subjective:: No adverse events overnight. He did have surgery on his left femur this morning. Physical therapy came to see him this afternoon. Blood pressure was high earlier but it improved as the day went on. He had an elevated temperature but it started to trend back down. Reason For Visit: LUNG CA W METS, PATHOLOGIC LEFT HIP FX Physical Exam Vital Signs: Temp Pulse Resp BP Pulse Ox 99.5 F 121 H 20 137/67 H 95 06/28/18 16:15 06/28/18 16:15 06/28/18 16:15 06/28/18 16:15 06/28/18 16:15 Intake & Output 06/27/18 06/28/18 06/29/18 06:59 06:59 06:59 Intake Total 2660 889 1585 Output Total 400 1450 100 Balance 2260 -561 1485 Weight 98.1 kg 64.3 kg General appearance: PRESENT: no acute distress, cooperative, disheveled Respiratory exam: PRESENT: clear to auscultation kd, symmetrical, unlabored. ABSENT: accessory muscle use, crackles, prolonged expiratory phas, rhonchi, tachypnea, wheezes Cardiovascular exam: PRESENT: RRR, +S1, +S2 Pulses: PRESENT: normal carotid pulses Vascular exam: PRESENT: normal capillary refill GI/Abdominal exam: PRESENT: normal bowel sounds, soft. ABSENT: distended, guarding, rebound, tenderness Extremities exam: PRESENT: tenderness - Left thigh. ABSENT: clubbing, pedal edema Musculoskeletal exam: PRESENT: Clean bandage covering incision left thigh Neurological exam: PRESENT: alert, awake, oriented to person, oriented to place, oriented to time, oriented to situation Psychiatric exam: PRESENT: appropriate affect, normal mood Skin exam: PRESENT: dry, warm Results Laboratory Results: 06/28/18 07:49 06/28/18 07:49 06/28/18 06/28/18 07:49 07:49 WBC 5.2 RBC 4.57 Hgb 14.2 Hct 41.9 MCV 92 MCH 31.0 MCHC 33.9 RDW 14.3 H Plt Count 100 L Seg Neutrophils % 73.5 Lymphocytes % 9.7 L Monocytes % 15.9 H Eosinophils % 0.5 Basophils % 0.4 Absolute Neutrophils 3.8 Absolute Lymphocytes 0.5 Absolute Monocytes 0.8 Absolute Eosinophils 0.0 Absolute Basophils 0.0 Sodium 132.0 L Potassium 4.4 Chloride 101 Carbon Dioxide 24 Anion Gap 7 BUN 22 H Creatinine 0.85 Est GFR ( Amer) > 60 Est GFR (Non-Af Amer) > 60 Glucose 103 Calcium 8.8 06/26/18 06/26/18 06/26/18 02:25 02:25 09:09 Creatine Kinase 34 L 40 L CK-MB (CK-2) 0.55 Troponin I < 0.012 06/26/18 06/26/18 06/26/18 09:09 14:25 14:25 Creatine Kinase 45 L CK-MB (CK-2) 0.70 0.78 Troponin I < 0.012 < 0.012 Impressions: Lower Extremity CT 06/25/18 18:28 IMPRESSION: 1. Acute impacted and slightly angulated pathologic fracture of the femoral neck and intertrochanteric region, at site of previously demonstrated lytic bone lesion. Chest X-Ray 06/25/18 22:40 IMPRESSION: No acute disease. copyright 2011 [employer]- All Rights Reserved Fluoroscopy 06/28/18 00:00 IMPRESSION: IMAGE(S) OBTAINED DURING PROCEDURE. Hip X-Ray 06/28/18 00:00 IMPRESSION: IMAGE(S) OBTAINED DURING PROCEDURE. 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 Weightbearing right recommendations per orthopedics. Continue to encourage physical therapy. Pain control. We will assess him for the need for further physical therapy after he leaves the hospital. (2) Lung cancer Is this a current diagnosis for this admission?: Yes Plan: Hospice consult was done, he does not want hospice yet but is interested in palliative care after discharge. He will follow-up with oncology as an outpatient. Had been getting palliative radiation treatments. (3) Hypertension Qualifiers: Hypertension type: essential hypertension Qualified Code(s): I10 - Essenti al (primary) hypertension Is this a current diagnosis for this admission?: Yes Plan: Blood pressures had improved some postoperatively. We will keep an eye on them. We have started some lisinopril and Norvasc. - Time Time Spent with patient: 15-24 minutes
[2018-06-28] MEDS: CEFAZOLIN SODIUM 2 GM in DEXTROSE 5%-WATER 100 ML IV SCH (18:01)
[2018-06-29] MEDS: RINGERS SOLUTION,LACTATED 1,000 ML IV PRN ×4 (00:01→22:35)
[2018-06-29] MEDS: CEFAZOLIN SODIUM 2 GM in DEXTROSE 5%-WATER 100 ML IV SCH (03:00)
[2018-06-29] MEDS: HEPARIN SOD (PORCINE) 5,000 UNIT/ML 1 ML SYRINGE SUBCUT SCH ×3 (05:41→21:53)
[2018-06-29 06:11] LABS: HEMATOCRIT 39.7 % (37.9-51.0); HEMOGLOBIN 13.7 g/dL (13.5-17.0); MEAN CORPUSCULAR HEMOGLOBIN 31.4 pg (27.0-33.4); MEAN CORPUSCULAR HGB CONC 34.5 g/dL (32.0-36.0); MEAN CORPUSCULAR VOLUME 91 fl (80-97); PLATELET COUNT 112 10^3/uL (150-450); RED BLOOD COUNT 4.36 10^6/uL (4.35-5.55); RED CELL DISTRIBUTION WIDTH 14.7 % (11.5-14.0); WHITE BLOOD COUNT 6.7 10^3/uL (4.0-10.5)
--- NOTE | 2018-06-29 06:19 | PDOC PROGRESS REPORT ---
Subjective Progress Note for:: 06/29/18 Reason For Visit: LUNG CA W METS, PATHOLOGIC LEFT HIP FX 57-year-old white male with metastatic carcinoma presumably of hepatic origin now postop day 1 status post open reduction internal fixation of the left proximal femoral pathologic fracture. Patient alert oriented and appropriate. Patient is comfortable this morning. Physical Exam Vital Signs: Temp Pulse Resp BP Pulse Ox 36.9 C 120 H 17 157/85 H 93 06/28/18 23:39 06/29/18 02:00 06/28/18 23:39 06/28/18 23:39 06/28/18 23:39 Intake & Output 06/27/18 06/28/18 06/29/18 06:59 06:59 06:59 Intake Total 2660 889 3825 Output Total 400 1450 100 Balance 2260 -561 3725 Weight 98.1 kg 64.3 kg 81.8 kg Physical Exam: Middle-aged white male sitting up in bed. General appearance: PRESENT: no acute distress Head exam: PRESENT: normocephalic Respiratory exam: PRESENT: unlabored Cardiovascular exam: PRESENT: RRR GI/Abdominal exam: PRESENT: soft Rectal exam: PRESENT: deferred Extremities exam: PRESENT: other - Left lower extremity dressing is clean dry and intact. Leg lengths are equal. Distal neurovascular examination is intact. Neurological exam: PRESENT: alert, awake, oriented to person, oriented to place, oriented to time, oriented to situation. ABSENT: motor sensory deficit Psychiatric exam: PRESENT: appropriate affect, normal mood. ABSENT: homicidal ideation, suicidal ideation Skin exam: PRESENT: dry, intact, warm. ABSENT: cyanosis, rash Results Laboratory Results: 06/29/18 05:55 06/28/18 06/28/18 06/29/18 07:49 07:49 05:55 WBC 5.2 6.7 RBC 4.57 4.36 Hgb 14.2 13.7 Hct 41.9 39.7 MCV 92 91 MCH 31.0 31.4 MCHC 33.9 34.5 RDW 14.3 H 14.7 H Plt Count 100 L 112 L Seg Neutrophils % 73.5 Lymphocytes % 9.7 L Monocytes % 15.9 H Eosinophils % 0.5 Basophils % 0.4 Absolute Neutrophils 3.8 Absolute Lymphocytes 0.5 Absolute Monocytes 0.8 Absolute Eosinophils 0.0 Absolute Basophils 0.0 Sodium 132.0 L Potassium 4.4 Chloride 101 Carbon Dioxide 24 Anion Gap 7 BUN 22 H Creatinine 0.85 Est GFR ( Amer) > 60 Est GFR (Non-Af Amer) > 60 Glucose 103 Calcium 8.8 06/26/18 06/26/18 06/26/18 02:25 02:25 09:09 Creatine Kinase 34 L 40 L CK-MB (CK-2) 0.55 Troponin I < 0.012 06/26/18 06/26/18 06/26/18 09:09 14:25 14:25 Creatine Kinase 45 L CK-MB (CK-2) 0.70 0.78 Troponin I < 0.012 < 0.012 Impressions: Lower Extremity CT 06/25/18 18:28 IMPRESSION: 1. Acute impacted and slightly angulated pathologic fracture of the femoral neck and intertrochanteric region, at site of previously demonstrated lytic bone lesion. Chest X-Ray 06/25/18 22:40 IMPRESSION: No acute disease. copyright 2011 [employer]- All Rights Reserved Fluoroscopy 06/28/18 00:00 IMPRESSION: IMAGE(S) OBTAINED DURING PROCEDURE. Hip X-Ray 06/28/18 00:00 IMPRESSION: IMAGE(S) OBTAINED DURING PROCEDURE. 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 Additional tissue was sent to pathology yesterday to help with histopathologic analysis. Patient can be mobilized on a weightbearing as tolerated basis. Patient had been in the process of external beam radiation therapy to the left proximal femur. External beam radiation therapy can be resumed once there is been adequate wound healing in 2-3 weeks. - Time Time Spent with patient: 15-24 minutes Anticipated discharge: Other Within: within 48 hours
[2018-06-29 06:32] LABS: ANION GAP 7 (5-19); BLOOD UREA NITROGEN 28 mg/dL (7-20); CALCIUM 8.8 mg/dL (8.4-10.2); CARBON DIOXIDE 22 mmol/L (22-30); CHLORIDE 102 mmol/L (98-107); GLUCOSE 90 mg/dL (75-110); POTASSIUM 4.7 mmol/L (3.6-5.0); SODIUM 131.3 mmol/L (137-145)
[2018-06-29] MEDS: IPRATROPIUM/ALBUTEROL 0.5-2.5 MG/3 ML AMPUL NEB SCH ×2 (08:08→20:54)
[2018-06-29] MEDS: DOCUSATE SODIUM 100 MG CAPSULE PO SCH ×2 (10:08→17:53)
[2018-06-29] MEDS: LISINOPRIL 10 MG TABLET PO SCH (10:08)
[2018-06-29] MEDS: AMLODIPINE BESYLATE 10 MG TABLET PO SCH (10:08)
[2018-06-29] MEDS: DIAZEPAM 5 MG TABLET PO SCH ×2 (10:09→17:53)
[2018-06-29] MEDS: ASPIRIN 81 MG TABLET, ENT COATED PO SCH (10:09)
[2018-06-29] MEDS: ACETAMINOPHEN 325 MG TABLET PO PRN (17:54)
--- NOTE | 2018-06-29 18:47 | PDOC PROGRESS REPORT ---
Subjective Progress Note for:: 06/29/18 Subjective:: No adverse events overnight. No new complaints. His pain is much better controlled since his surgery. His blood pressure has improved substantially. He is eating and drinking without difficulty. He had his first round with physical therapy yesterday evening, and he was preparing to work with him again this morning. Reason For Visit: LUNG CA W METS, PATHOLOGIC LEFT HIP FX Physical Exam Vital Signs: Temp Pulse Resp BP Pulse Ox 99.0 F 112 H 16 132/61 H 92 06/29/18 16:00 06/29/18 16:00 06/29/18 16:00 06/29/18 16:00 06/29/18 16:00 Intake & Output 06/28/18 06/29/18 06/30/18 06:59 06:59 06:59 Intake Total 889 3825 1560 Output Total 1450 100 300 Balance -561 3725 1260 Weight 64.3 kg 81.8 kg General appearance: PRESENT: no acute distress, cooperative, disheveled Respiratory exam: PRESENT: clear to auscultation kd, symmetrical, unlabored. ABSENT: accessory muscle use, crackles, prolonged expiratory phas, rhonchi, tachypnea, wheezes Cardiovascular exam: PRESENT: RRR, +S1, +S2 Pulses: PRESENT: normal carotid pulses Vascular exam: PRESENT: normal capillary refill GI/Abdominal exam: PRESENT: normal bowel sounds, soft. ABSENT: distended, guarding, rebound, tenderness Extremities exam: PRESENT: tenderness - Left thigh. ABSENT: clubbing, pedal e alyssa Musculoskeletal exam: PRESENT: Clean bandage covering incision left thigh Neurological exam: PRESENT: alert, awake, oriented to person, oriented to place, oriented to time, oriented to situation Psychiatric exam: PRESENT: appropriate affect, normal mood Skin exam: PRESENT: dry, warm Results Laboratory Results: 06/29/18 05:55 06/29/18 05:55 06/29/18 06/29/18 05:55 05:55 WBC 6.7 RBC 4.36 Hgb 13.7 Hct 39.7 MCV 91 MCH 31.4 MCHC 34.5 RDW 14.7 H Plt Count 112 L Sodium 131.3 L Potassium 4.7 Chloride 102 Carbon Dioxide 22 Anion Gap 7 BUN 28 H Creatinine 0.94 Est GFR ( Amer) > 60 Est GFR (Non-Af Amer) > 60 Glucose 90 Calcium 8.8 06/26/18 06/26/18 06/26/18 02:25 02:25 09:09 Creatine Kinase 34 L 40 L CK-MB (CK-2) 0.55 Troponin I < 0.012 06/26/18 06/26/18 06/26/18 09:09 14:25 14:25 Creatine Kinase 45 L CK-MB (CK-2) 0.70 0.78 Troponin I < 0.012 < 0.012 Impressions: Lower Extremity CT 06/25/18 18:28 IMPRESSION: 1. Acute impacted and slightly angulated pathologic fracture of the femoral neck and intertrochanteric region, at site of previously demonstrated lytic bone lesion. Chest X-Ray 06/25/18 22:40 IMPRESSION: No acute disease. copyright 2011 [employer]- All Rights Reserved Fluoroscopy 06/28/18 00:00 IMPRESSION: IMAGE(S) OBTAINED DURING PROCEDURE. Hip X-Ray 06/28/18 00:00 IMPRESSION: IMAGE(S) OBTAINED DURING PROCEDURE. 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 Weightbearing right recommendations per orthopedics. Continue to encourage physical therapy. Pain control. We will assess him for the need for further physical therapy for after he leaves the hospital. (2) Lung cancer Is this a current diagnosis for this admission?: Yes Plan: Hospice consult was done, he does not want hospice yet but is interested in palliative care after discharge. He will follow-up with oncology as an outpatient. Had been getting palliative radiation treatments. (3) Hypertension Qualifiers: Hypertension type: essential hypertension Qualified Code(s): I10 - Essential (primary) hypertension Is this a current diagnosis for this admission?: Yes Plan: Much improved on his current regimen. - Time Time Spent with patient: 15-24 minutes
[2018-06-29] MEDS: HYDROMORPHONE HCL 2 MG TABLET PO PRN (23:11)
[2018-06-30] MEDS: HEPARIN SOD (PORCINE) 5,000 UNIT/ML 1 ML SYRINGE SUBCUT SCH ×3 (05:39→21:23)
[2018-06-30] MEDS: IPRATROPIUM/ALBUTEROL 0.5-2.5 MG/3 ML AMPUL NEB SCH ×2 (08:03→20:40)
[2018-06-30] MEDS: ASPIRIN 81 MG TABLET, ENT COATED PO SCH (10:14)
[2018-06-30] MEDS: DOCUSATE SODIUM 100 MG CAPSULE PO SCH ×2 (10:14→18:27)
[2018-06-30] MEDS: AMLODIPINE BESYLATE 10 MG TABLET PO SCH (10:14)
[2018-06-30] MEDS: OXYCODONE HCL IR 5 MG TABLET PO PRN (10:15)
[2018-06-30] MEDS: LISINOPRIL 10 MG TABLET PO SCH (10:15)
[2018-06-30] MEDS: DIAZEPAM 5 MG TABLET PO SCH ×2 (10:15→18:27)
[2018-06-30] MEDS: ACETAMINOPHEN 325 MG TABLET PO PRN (10:16)
[2018-06-30] MEDS: HYDROMORPHONE HCL 2 MG TABLET PO PRN (13:54)
--- NOTE | 2018-06-30 17:08 | PDOC PROGRESS REPORT ---
Subjective Progress Note for:: 06/30/18 Subjective:: No adverse events overnight. No new complaints. Vital signs been stable. Blood pressure is much better today. Pain is well controlled. Eating and drinking without difficulty. Reason For Visit: LUNG CA W METS, PATHOLOGIC LEFT HIP FX Physical Exam Vital Signs: Temp Pulse Resp BP Pulse Ox 98.7 F 104 H 22 H 116/63 100 06/30/18 11:43 06/30/18 11:43 06/30/18 11:43 06/30/18 11:43 06/30/18 11:43 Intake & Output 06/29/18 06/30/18 07/01/18 06:59 06:59 06:59 Intake Total 4825 1560 1000 Output Total 100 300 Balance 4725 1260 1000 Weight 81.8 kg 84.3 kg General appearance: PRESENT: no acute distress, cooperative, disheveled Respiratory exam: PRESENT: clear to auscultation kd, symmetrical, unlabored. ABSENT: accessory muscle use, crackles, prolonged expiratory phas, rhonchi, ta chypnea, wheezes Cardiovascular exam: PRESENT: RRR, +S1, +S2 Pulses: PRESENT: normal carotid pulses Vascular exam: PRESENT: normal capillary refill GI/Abdominal exam: PRESENT: normal bowel sounds, soft. ABSENT: distended, guarding, rebound, tenderness Extremities exam: PRESENT: tenderness - Left thigh. ABSENT: clubbing, pedal edema Musculoskeletal exam: PRESENT: Clean bandage covering incision left thigh Neurological exam: PRESENT: alert, awake, oriented to person, oriented to place, oriented to time, oriented to situation Psychiatric exam: PRESENT: appropriate affect, normal mood Skin exam: PRESENT: dry, warm Results Laboratory Results: 06/29/18 05:55 06/29/18 05:55 06/26/18 06/26/18 06/26/18 02:25 02:25 09:09 Creatine Kinase 34 L 40 L CK-MB (CK-2) 0.55 Troponin I < 0.012 06/26/18 06/26/18 06/26/18 09:09 14:25 14:25 Creatine Kinase 45 L CK-MB (CK-2) 0.70 0.78 Troponin I < 0.012 < 0.012 Impressions: Lower Extremity CT 06/25/18 18:28 IMPRESSION: 1. Acute impacted and slightly angulated pathologic fracture of the femoral neck and intertrochanteric region, at site of previously demonstrated lytic bone lesion. Chest X-Ray 06/25/18 22:40 IMPRESSION: No acute disease. copyright 2011 [employer]- All Rights Reserved Fluoroscopy 06/28/18 00:00 IMPRESSION: IMAGE(S) OBTAINED DURING PROCEDURE. Hip X-Ray 06/28/18 00:00 IMPRESSION: IMAGE(S) OBTAINED DURING PROCEDURE. 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 Weightbearing right recommendations per orthopedics. Continue to encourage physical therapy. Pain control. We will assess him for the need for further physical therapy for after he leaves the hospital. He had some trouble yesterday but says he is feeling better today and is looking forward to working with therapy. (2) Lung cancer Is this a current diagnosis for this admission?: Yes Plan: Hospice consult was done, he does not want hospice yet but is interested in palliative care after discharge. He will follow-up with oncology as an out patient. Had been getting palliative radiation treatments. (3) Hypertension Qualifiers: Hypertension type: essential hypertension Qualified Code(s): I10 - Essential (primary) hypertension Is this a current diagnosis for this admission?: Yes Plan: Much improved on his current regimen. - Time Time Spent with patient: 15-24 minutes
[2018-06-30] MEDS: RINGERS SOLUTION,LACTATED 1,000 ML IV PRN (19:32)
[2018-06-30] MEDS ORDERED: METOPROLOL TARTRATE PF/INJ 5 MG/5 ML SDV IV ONE (22:00)
[2018-07-01] MEDS: RINGERS SOLUTION,LACTATED 1,000 ML IV PRN ×3 (02:39→22:27)
[2018-07-01] MEDS: HYDROMORPHONE HCL 2 MG TABLET PO PRN (05:04)
[2018-07-01] MEDS: HEPARIN SOD (PORCINE) 5,000 UNIT/ML 1 ML SYRINGE SUBCUT SCH ×3 (05:06→21:07)
[2018-07-01] MEDS: FENTANYL CITRATE INJ/PF 100 MCG/2 ML AMPUL IV PRN ×2 (07:39→15:05)
[2018-07-01] MEDS: IPRATROPIUM/ALBUTEROL 0.5-2.5 MG/3 ML AMPUL NEB SCH ×2 (08:04→20:20)
[2018-07-01] MEDS: ASPIRIN 81 MG TABLET, ENT COATED PO SCH (10:15)
[2018-07-01] MEDS: AMLODIPINE BESYLATE 10 MG TABLET PO SCH (10:15)
[2018-07-01] MEDS: DIAZEPAM 5 MG TABLET PO SCH ×2 (10:15→19:39)
[2018-07-01] MEDS: LISINOPRIL 10 MG TABLET PO SCH (10:15)
[2018-07-01] MEDS: DOCUSATE SODIUM 100 MG CAPSULE PO SCH ×2 (10:15→19:39)
--- NOTE | 2018-07-01 17:02 | PDOC PROGRESS REPORT ---
Subjective Progress Note for:: 07/01/18 Subjective:: No adverse events overnight. No new complaints. Pain is been relatively well controlled. Blood pressures have improved. He is eating and drinking well. He was able to stand up today but required assistance to do it with a rolling walker and is still not able to ambulate. Reason For Visit: LUNG CA W METS, PATHOLOGIC LEFT HIP FX Physical Exam Vital Signs: Temp Pulse Resp BP Pulse Ox 100.9 F H 119 H 24 H 150/73 H 89 L 07/01/18 15:41 07/01/18 15:41 07/01/18 15:41 07/01/18 15:41 07/01/18 15:41 Intake & Output 06/30/18 07/01/18 07/02/18 06:59 06:59 06:59 Intake Total 2560 2780 1000 Output Total 300 425 Balance 2260 2355 1000 Weight 84.3 kg 85.3 kg General appearance: PRESENT: no acute distress, cooperative, disheveled Respiratory exam: PRESENT: clear to auscultation kd, symmetrical, unlabored. ABSENT: accessory muscle use, crackles, prolonged expiratory phas, rhonchi, ta chypnea, wheezes Cardiovascular exam: PRESENT: RRR, +S1, +S2 Pulses: PRESENT: normal carotid pulses Vascular exam: PRESENT: normal capillary refill GI/Abdominal exam: PRESENT: normal bowel sounds, soft. ABSENT: distended, guarding, rebound, tenderness Extremities exam: PRESENT: tenderness - Left thigh. ABSENT: clubbing, pedal edema Musculoskeletal exam: PRESENT: Clean bandage covering incision left thigh Neurological exam: PRESENT: alert, awake, oriented to person, oriented to place, oriented to time, oriented to situation Psychiatric exam: PRESENT: appropriate affect, normal mood Skin exam: PRESENT: dry, warm Results Laboratory Results: 06/29/18 05:55 06/29/18 05:55 06/26/18 06/26/18 06/26/18 02:25 02:25 09:09 Creatine Kinase 34 L 40 L CK-MB (CK-2) 0.55 Troponin I < 0.012 06/26/18 06/26/18 06/26/18 09:09 14:25 14:25 Creatine Kinase 45 L CK-MB (CK-2) 0.70 0.78 Troponin I < 0.012 < 0.012 Impressions: Lower Extremity CT 06/25/18 18:28 IMPRESSION: 1. Acute impacted and slightly angulated pathologic fracture of the femoral neck and intertrochanteric region, at site of previously demonstrated lytic bone lesion. Fluoroscopy 06/28/18 00:00 IMPRESSION: IMAGE(S) OBTAINED DURING PROCEDURE. Hip X-Ray 06/28/18 00:00 IMPRESSION: IMAGE(S) OBTAINED DURING PROCEDURE. 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 Weightbearing right recommendations per orthopedics. Continue to encourage physical therapy. Pain control. He is working with therapy but is still unable to ambulate sufficiently to go home. He does not have insurance but has applied for Medicaid. Case management is involved. (2) Lung cancer Is this a current diagnosis for this admission?: Yes Plan: Hospice consult was done, he does not want hospice yet but is interested in palliative care after discharge. He will follow-up with oncology as an outpatient. Had been getting palliative radiation treatments. (3) Hypertension Qualifiers: Hypertension type: essential hypertension Qualified Code(s): I10 - Essential (primary) hypertension Is this a current diagnosis for this admission?: Yes Plan: Much improved on his current regimen. - Time Time Spent with patient: 15-24 minutes
--- NOTE | 2018-07-01 17:32 | RADIOLOGY REPORT (SQ) ---
EXAM DESCRIPTION: CHEST SINGLE VIEW COMPLETED DATE/TIME: 07/01/2018 4:50 pm REASON FOR STUDY: Possible Pneumonia. COMPARISON: 06/25/2018 EXAM PARAMETERS: NUMBER OF VIEWS: One view. TECHNIQUE: Single frontal radiographic view of the chest acquired. RADIATION DOSE: NA LIMITATIONS: None. FINDINGS: LUNGS AND PLEURA: No opacities, masses or pneumothorax. No pleural effusion. MEDIASTINUM AND HILAR STRUCTURES: No masses. Contour normal. HEART AND VASCULAR STRUCTURES: Heart normal in size. Normal vasculature. BONES: No acute findings. HARDWARE: None in the chest. OTHER: No other significant finding. IMPRESSION: NO ACUTE RADIOGRAPHIC FINDING IN THE CHEST. TECHNICAL DOCUMENTATION: JOB ID: [id number] [employer]- All Rights Reserved Reading location - IP/workstation name: [email or web address]
[2018-07-01] MEDS: ACETAMINOPHEN 325 MG TABLET PO PRN (21:12)
[2018-07-02] MEDS: HEPARIN SOD (PORCINE) 5,000 UNIT/ML 1 ML SYRINGE SUBCUT SCH ×3 (05:00→21:32)
[2018-07-02] MEDS: RINGERS SOLUTION,LACTATED 1,000 ML IV PRN ×2 (05:51→21:36)
--- NOTE | 2018-07-02 06:57 | PDOC PROGRESS REPORT ---
Subjective Progress Note for:: 07/02/18 Reason For Visit: LUNG CA W METS, PATHOLOGIC LEFT HIP FX 58-year-old white male status post open reduction internal fixation of a left pathologic intertrochanteric femur fracture postop day 4 Physical Exam Vital Signs: Temp Pulse Resp BP Pulse Ox 38.4 C H 109 H 18 143/69 H 96 07/01/18 20:00 07/02/18 02:00 07/01/18 20:21 07/01/18 20:21 07/02/18 01:35 Intake & Output 06/30/18 07/01/18 07/02/18 06:59 06:59 06:59 Intake Total 2560 2780 3420 Output Total 300 425 450 Balance 2260 2355 2970 Weight 84.3 kg 85.3 kg 86.2 kg General appearance: PRESENT: no acute distress Head exam: PRESENT: normocephalic Respiratory exam: PRESENT: unlabored Cardiovascular exam: PRESENT: RRR Pulses: PRESENT: +1 pedal pulses bilateral Vascular exam: PRESENT: normal capillary refill GI/Abdominal exam: PRESENT: soft Rectal exam: PRESENT: deferred Extremities exam: PRESENT: other - Leg lengths equal. Left lower extremity dressing is dry. Neurological exam: PRESENT: alert, awake, oriented to person, oriented to place, oriented to time, oriented to situation. ABSENT: motor sensory deficit Psychiatric exam: PRESENT: appropriate affect, normal mood. ABSENT: homicidal ideation, suicidal ideation Skin exam: PRESENT: dry, intact, warm. ABSENT: cyanosis, rash Results Laboratory Results: 06/29/18 05:55 06/29/18 05:55 06/26/18 06/26/18 06/26/18 02:25 02:25 09:09 Creatine Kinase 34 L 40 L CK-MB (CK-2) 0.55 Troponin I < 0.012 06/26/18 06/26/18 06/26/18 09:09 14:25 14:25 Creatine Kinase 45 L CK-MB (CK-2) 0.70 0.78 Troponin I < 0.012 < 0.012 Impressions: Lower Extremity CT 06/25/18 18:28 IMPRESSION: 1. Acute impacted and slightly angulated pathologic fracture of the femoral neck and intertrochanteric region, at site of previously demonstrated lytic bone lesion. Fluoroscopy 06/28/18 00:00 IMPRESSION: IMAGE(S) OBTAINED DURING PROCEDURE. Hip X-Ray 06/28/18 00:00 IMPRESSION: IMAGE(S) OBTAINED DURING PROCEDURE. Chest X-Ray 07/01/18 00:00 IMPRESSION: NO ACUTE RADIOGRAPHIC FINDING IN THE CHEST. 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 However his progress with physical therapy has been limited and at this point does not permit discharge to independent living status. My recommendations at care home facility placement be reinvestigated.
[2018-07-02] MEDS: IPRATROPIUM/ALBUTEROL 0.5-2.5 MG/3 ML AMPUL NEB SCH ×2 (08:44→20:15)
[2018-07-02] MEDS: LISINOPRIL 10 MG TABLET PO SCH (09:15)
[2018-07-02] MEDS: ASPIRIN 81 MG TABLET, ENT COATED PO SCH (09:15)
[2018-07-02] MEDS: DIAZEPAM 5 MG TABLET PO SCH ×2 (09:15→17:17)
[2018-07-02] MEDS: AMLODIPINE BESYLATE 10 MG TABLET PO SCH (09:15)
[2018-07-02] MEDS: DOCUSATE SODIUM 100 MG CAPSULE PO SCH ×2 (09:15→17:17)
[2018-07-02] MEDS: FENTANYL CITRATE INJ/PF 100 MCG/2 ML AMPUL IV PRN ×2 (09:16→17:16)
--- NOTE | 2018-07-02 15:40 | PDOC PROGRESS REPORT ---
Subjective Progress Note for:: 07/02/18 Subjective:: No acute events in the last 24 hours. Only concern from the mother is patient having the regular hiccups. Patient is comfortable in the bed even though in excruciating pain he is saying he is fine. We had a long discussion with [place] social worker assistant and nurse Kristal with the family members and the patient patient and family is inclining towards hospice care. Reason For Visit: LUNG CA W METS, PATHOLOGIC LEFT HIP FX Physical Exam Vital Signs: Temp Pulse Resp BP Pulse Ox 98.4 F 81 20 140/65 H 96 07/02/18 11:29 07/02/18 11:29 07/02/18 11:29 07/02/18 11:29 07/02/18 11:29 Intake & Output 07/01/18 07/02/18 07/03/18 06:59 06:59 06:59 Intake Total 2780 3420 Output Total 425 450 Balance 2355 2970 Weight 85.3 kg 86.2 kg General appearance: PRESENT: cooperative, disheveled, other - Moderate distress Head exam: PRESENT: atraumatic Eye exam: PRESENT: PERRLA Neck exam: ABSENT: carotid bruit, JVD, lymphadenopathy, thyromegaly Respiratory exam: PRESENT: clear to auscultation kd. ABSENT: rales, rhonchi, wheezes Cardiovascular exam: PRESENT: RRR. ABSENT: diastolic murmur, rubs, systolic murmur GI/Abdominal exam: PRESENT: normal bowel sounds, soft. ABSENT: distended, guarding, mass, organolmegaly, rebound, tenderness Extremities exam: PRESENT: other - Complaining of pain on touch on the left thigh. Neurological exam: PRESENT: alert, awake, oriented to person, oriented to place, oriented to time, oriented to situation, CN II-XII grossly intact. ABSENT: motor sensory deficit Psychiatric exam: PRESENT: appropriate affect, normal mood. ABSENT: homicidal ideation, suicidal ideation Results Laboratory Results: 06/29/18 05:55 06/29/18 05:55 06/26/18 06/26/18 06/26/18 02:25 02:25 09:09 Creatine Kinase 34 L 40 L CK-MB (CK-2) 0.55 Troponin I < 0.012 06/26/18 06/26/18 06/26/18 09:09 14:25 14:25 Creatine Kinase 45 L CK-MB (CK-2) 0.70 0.78 Troponin I < 0.012 < 0.012 Impressions: Lower Extremity CT 06/25/18 18:28 IMPRESSION: 1. Acute impacted and slightly angulated pathologic fracture of the femoral neck and intertrochanteric region, at site of previously demonstrated lytic bone lesion. Fluoroscopy 06/28/18 00:00 IMPRESSION: IMAGE(S) OBTAINED DURING PROCEDURE. Hip X-Ray 06/28/18 00:00 IMPRESSION: IMAGE(S) OBTAINED DURING PROCEDURE. Chest X-Ray 07/01/18 00:00 IMPRESSION: NO ACUTE RADIOGRAPHIC FINDING IN THE CHEST. 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 Weightbearing right recommendations per orthopedics. Continue to encourage physical therapy. Pain control. He is working with therapy but is still unable to ambulate sufficiently to go home. He does not have insurance but has applied for Medicaid. Case management is involved. 07/02/2018-postop day 4. No complications. Patient able to stand on his own without any support this morning. Pain is relatively controlled. Family is thinking about taking home with hospice care so the pain can be better managed. Because of lack of insurance patient may not able to go to rehab facility. construction ironworkerchantel Bean is working with the patient and family. (2) Lung cancer Is this a current diagnosis for this admission?: Yes Plan: Hospice consult was done, he does not want hospice yet but is interested in palliative care after discharge. He will follow-up with oncology as an outpatient. Had been getting palliative radiation treatments. 07/02/2018-after long discussion with the social chantel Bean family and the patient think leading towards hospice care. Probably they will make a decision tomorrow. In the meantime will continue supportive care here. (3) Hypertension Qualifiers: Hypertension type: essential hypertension Qualified Code(s): I10 - Essential (primary) hypertension Is this a current diagnosis for this admission?: Yes Plan: Much improved on his current regimen. 07/02/2018-patient blood pressure today is 140/65 pulse rate of 81. Slightly elevated blood pressure may be secondary to pain. Patient is on amlodipine 10 mg daily and lisinopril 10 mg daily. Plan is to continue the present management. - Time Time Spent with patient: 15-24 minutes Medications reviewed and adjusted accordingly: Yes Anticipated discharge: Hospice
[2018-07-02] MEDS: OXYCODONE HCL IR 5 MG TABLET PO PRN (23:24)
[2018-07-03] MEDS: RINGERS SOLUTION,LACTATED 1,000 ML IV PRN ×3 (04:59→20:30)
[2018-07-03] MEDS: HEPARIN SOD (PORCINE) 5,000 UNIT/ML 1 ML SYRINGE SUBCUT SCH ×3 (05:01→21:19)
[2018-07-03] MEDS: OXYCODONE HCL IR 5 MG TABLET PO PRN (06:57)
[2018-07-03] MEDS: IPRATROPIUM/ALBUTEROL 0.5-2.5 MG/3 ML AMPUL NEB SCH ×2 (08:07→20:37)
[2018-07-03] MEDS: ACETAMINOPHEN 325 MG TABLET PO PRN (08:53)
[2018-07-03] MEDS: LISINOPRIL 10 MG TABLET PO SCH (10:04)
[2018-07-03] MEDS: DIAZEPAM 5 MG TABLET PO SCH ×2 (10:04→18:06)
[2018-07-03] MEDS: ASPIRIN 81 MG TABLET, ENT COATED PO SCH (10:04)
[2018-07-03] MEDS: DOCUSATE SODIUM 100 MG CAPSULE PO SCH ×2 (10:04→18:06)
[2018-07-03] MEDS: AMLODIPINE BESYLATE 10 MG TABLET PO SCH (10:04)
--- NOTE | 2018-07-03 14:20 | PDOC PROGRESS REPORT ---
Subjective Progress Note for:: 07/03/18 Subjective:: No acute events in the last 24 hours. Only concern from the mother is patient having the regular hiccups. Patient is comfortable in the bed even though in excruciating pain he is saying he is fine. We had a long discussion with [place] social studies teacher and nurse Kristal with the family members and the patient patient and family is inclining towards hospice care. 07/03/2018 no acute events in the last 24 hours. Patient is afebrile. Pain is better managed. Patient's mom is requesting for CT head without contrast to look for metastasis. Patient is comfortably in the bed communicating well expressing desire to go home. Reason For Visit: LUNG CA W METS, PATHOLOGIC LEFT HIP FX Physical Exam Vital Signs: Temp Pulse Resp BP Pulse Ox 97.8 F 94 19 125/63 96 07/03/18 11:10 07/03/18 11:10 07/03/18 11:10 07/03/18 11:10 07/03/18 11:10 Intake & Output 07/02/18 07/03/18 07/04/18 06:59 06:59 06:59 Intake Total 3420 5137 1480 Output Total 450 1000 Balance 2970 4137 1480 Weight 86.2 kg 85.4 kg General appearance: PRESENT: no acute distress Head exam: PRESENT: atraumatic Eye exam: PRESENT: PERRLA Teeth exam: PRESENT: poor dentation Neck exam: ABSENT: carotid bruit, JVD, lymphadenopathy, thyromegaly Respiratory exam: PRESENT: decreased breath sounds Cardiovascular exam: PRESENT: tachycardia GI/Abdominal exam: PRESENT: normal bowel sounds, soft. ABSENT: distended, guarding, mass, organolmegaly, rebound, tenderness Extremities exam: PRESENT: full ROM. ABSENT: calf tenderness, clubbing, pedal edema Neurological exam: PRESENT: alert, awake, oriented to person, oriented to place, oriented to time, oriented to situation, CN II-XII grossly intact. ABSENT: motor sensory deficit Psychiatric exam: PRESENT: appropriate affect, normal mood. ABSENT: homicidal ideation, suicidal ideation Results Laboratory Results: 06/29/18 05:55 06/29/18 05:55 06/26/18 06/26/18 06/26/18 02:25 02:25 09:09 Creatine Kinase 34 L 40 L CK-MB (CK-2) 0.55 Troponin I < 0.012 06/26/18 06/26/18 06/26/18 09:09 14:25 14:25 Creatine Kinase 45 L CK-MB (CK-2) 0.70 0.78 Troponin I < 0.012 < 0.012 Impressions: Lower Extremity CT 06/25/18 18:28 IMPRESSION: 1. Acute impacted and slightly angulated pathologic fracture of the femoral neck and intertrochanteric region, at site of previously demonstrated lytic bone lesion. Fluoroscopy 06/28/18 00:00 IMPRESSION: IMAGE(S) OBTAINED DURING PROCEDURE. Hip X-Ray 06/28/18 00:00 IMPRESSION: IMAGE(S) OBTAINED DURING PROCEDURE. Chest X-Ray 07/01/18 00:00 IMPRESSION: NO ACUTE RADIOGRAPHIC FINDING IN THE CHEST. 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 Weightbearing right recommendations per orthopedics. Continue to encourage physical therapy. Pain control. He is working with therapy but is still unable to ambulate sufficiently to go home. He does not have insurance but has applied for Medicaid. Case management is involved. 07/02/2018-postop day 4. No complications. Patient able to stand on his own without any support this morning. Pain is relatively controlled. Family is thinking about taking home with hospice care so the pain can be better managed. Because of lack of insurance patient may not able to go to rehab facility. sail lay out workerchantel Bean is working with the patient and family. 07/03/2018-postoperative day 5 patient is doing well. Family is wants to wait and see the CT head report and decide about either hospice or palliative care. sail lay out worker is on board. (2) Lung cancer Is this a current diagnosis for this admission?: Yes Plan: Hospice consult was done, he does not want hospice yet but is interested in palliative care after discharge. He will follow-up with oncology as an outpatient. Had been getting palliative radiation treatments. 07/02/2018-after long discussion with the social chantel Bean family and the patient think leading towards hospice care. Probably they will make a decision tomorrow. In the meantime will continue supportive care here. 2018-patient has a history of lung cancer and family is inclining towards palliative care. (3) Hypertension Qualifiers: Hypertension type: essential hypertension Qualified Code(s): I10 - Essential (primary) hypertension Is this a current diagnosis for this admission?: Yes Plan: Much improved on his current regimen. 07/02/2018-patient blood pressure today is 140/65 pulse rate of 81. Slightly elevated blood pressure may be secondary to pain. Patient is on amlodipine 10 mg daily and lisinopril 10 mg daily. Plan is to continue the present management. 07/03/2018-patient's blood pressure today is 125/63. Stable. Presently on amlodipine 10 mg daily, lisinopril 10 mg p.o. daily plan is to continue the p resent management. - Time Time Spent with patient: 15-24 minutes Medications reviewed and adjusted accordingly: Yes Anticipated discharge: Hospice
--- NOTE | 2018-07-03 17:02 | RADIOLOGY REPORT (SQ) ---
EXAM DESCRIPTION: CT HEAD WITHOUT COMPLETED DATE/TIME: 07/03/2018 4:35 pm REASON FOR STUDY: headache COMPARISON: 03/04/2010. TECHNIQUE: Axial images acquired through the brain without intravenous contrast. Images reviewed wi th bone, brain and subdural windows. Images stored on PACS. All CT scanners at this facility use dose modulation, iterative reconstruction, and/or weight based d osing when appropriate to reduce radiation dose to as low as reasonably achievable (ALARA). [facility]: Dose Right [facility]: CareDose [facility]: Dose Right [facility]: Teradose 4D [facility]: [employer] RADIATION DOSE: CT Rad equipment meets quality standard of care and radiation dose reduction techniq ues were employed. CTDIvol: 53.2 mGy. DLP: 1177 mGy-cm.mGy. LIMITATIONS: None. FINDINGS: VENTRICLES: Prominence of the ventricular system compatible with parenchymal volume loss a nd increased from prior. CEREBRUM: No masses. No hemorrhage. No midline shift. Increased areas of low density in the white matter most likely due to chronic micro-vascular ischemic change. No evidence for large vascular ter ritory acute infarction. CEREBELLUM: No masses. No hemorrhage. No alteration of density. No evidence for acute infarction. EXTRAAXIAL SPACES: Age-related involutional change. No fluid collections. No masses. ORBITS AND GLOBE: No intra- or extraconal masses. Normal contour of globe without masses. CALVARIUM: No fracture. PARANASAL SINUSES: No fluid or mucosal thickening. SOFT TISSUES: No mass or hematoma. OTHER: No other significant finding. IMPRESSION: CHRONIC CHANGES OF ATROPHY AND MICROVASCULAR ISCHEMIA. NO EVIDENCE OF ACUTE PROCESS. EVIDENCE OF ACUTE STROKE: NO. TECHNICAL DOCUMENTATION: JOB ID: [id number] Quality ID # [id number]: Final reports with documentation of one or more dose reduction techniques (e.g., Au tomated exposure control, adjustment of the mA and/or kV according to patient size, use of iterative reconstruction technique) 2010 [employer]- All Rights Reserved Reading location - IP/workstation name: [email or web address]
[2018-07-04] MEDS: OXYCODONE HCL IR 5 MG TABLET PO PRN (05:57)
[2018-07-04] MEDS: RINGERS SOLUTION,LACTATED 1,000 ML IV PRN ×2 (05:58→14:33)
[2018-07-04] MEDS ORDERED: HYDROMORPHONE HCL 2 MG TABLET PO PRN (08:08)
[2018-07-04] MEDS: IPRATROPIUM/ALBUTEROL 0.5-2.5 MG/3 ML AMPUL NEB SCH (08:37)
[2018-07-04] MEDS: LISINOPRIL 10 MG TABLET PO SCH (09:41)
[2018-07-04] MEDS: AMLODIPINE BESYLATE 10 MG TABLET PO SCH (09:41)
[2018-07-04] MEDS: DOCUSATE SODIUM 100 MG CAPSULE PO SCH ×2 (09:42→17:12)
[2018-07-04] MEDS: ASPIRIN 81 MG TABLET, ENT COATED PO SCH (09:42)
[2018-07-04] MEDS: HEPARIN SOD (PORCINE) 5,000 UNIT/ML 1 ML SYRINGE SUBCUT SCH ×2 (09:43→15:46)
[2018-07-04] MEDS: ACETAMINOPHEN 325 MG TABLET PO PRN (09:59)
--- NOTE | 2018-07-04 11:29 | RADIOLOGY REPORT (SQ) ---
EXAM DESCRIPTION: VENOUS UNILATERAL LOWER COMPLETED DATE/TIME: 07/04/2018 11:01 am REASON FOR STUDY: STAT DOPPLER LLE R/O DVT COMPARISON: None. TECHNIQUE: Dynamic and static powers scale and color images acquired of the left leg venous system. Se lected spectral images acquired with additional compression and augmentation maneuvers. The contralat eral common femoral vein and saphenofemoral junction were also imaged. Images stored on PACS. LIMITATIONS: None. FINDINGS: LEFT COMMON FEMORAL: Normal phasicity, compression and augmentation. No visualized echogenic material on g ray scale. No defects on color images. FEMORAL: Normal compression and augmentation. No visualized echogenic material on powers scale. No defe cts on color images. POPLITEAL: Normal compression, augmentation. No visualized echogenic material on powers scale. No defec ts on color images. CALF VESSELS: Normal compression, augmentation. No visualized echogenic material on powers scale. No de fects on color images. GSV and SSV: Normal compression, augmentation. No visualized echogenic material on powers scale. No def ects on color images. ANY DEEP VENOUS INSUFFICIENCY: No reflux on Valsalva. ANY EVIDENCE OF POPLITEAL CYST: No. OTHER: No other significant finding. RIGHT COMMON FEMORAL VEIN AND SAPHENOFEMORAL JUNCTION: Normal phasicity, compression and augmentation. No visualized echogenic material on powers scale. No de fects on color images. IMPRESSION: NO EVIDENCE OF DVT OR SVT IN THE LEFT LEG. TECHNICAL DOCUMENTATION: JOB ID: [id number] [employer]- All Rights Reserved Reading location - IP/workstation name: [email or web address]
--- NOTE | 2018-07-04 14:54 | PDOC DISCHARGE SUMMARY ---
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 Weightbearing right recommendations per orthopedics. Continue to encourage physical therapy. Pain control. He is working with therapy but is still unable to ambulate sufficiently to go home. He does not have insurance but has applied for Medicaid. Case management is involved. 07/02/2018-postop day 4. No complications. Patient able to stand on his own without any support this morning. Pain is relatively controlled. Family is thinking about taking home with hospice care so the pain can be better managed. Because of lack of insurance patient may not able to go to rehab facility. tnt powder workerchantel Bean is working with the patient and family. 07/03/2018-postoperative day 5 patient is doing well. Family is wants to wait and see the CT head report and decide about either hospice or palliative care. tnt powder worker is on board. 07/04/2018-postop day 6. Patient is doing well. As per family request CT head was done and no acute disease was reported. Patient and family decided to go home with hospice care. (2) Lung cancer Is this a current diagnosis for this admission?: Yes Summary: Hospice consult was done, he does not want hospice yet but is interested in palliative care after discharge. He will follow-up with oncology as an outpatient. Had been getting palliative radiation treatments. 07/02/2018-after long discussion with the social chantel Bean family and the patient think leading towards hospice care. Probably they will make a decision tomorrow. In the meantime will continue supportive care here. 07/03/2018-patient has a history of lung cancer and family is inclining towards palliative care. 07/04/2018-patient has a history of lung cancer. After long discussion finally patient and family need to go home with hospice care. (3) Hypertension Is this a current diagnosis for this admission?: Yes Summary: Much improved on his current regimen. 07/02/2018-patient blood pressure today is 140/65 pulse rate of 81. Slightly elevated blood pressure may be secondary to pain. Patient is on amlodipine 10 mg daily and lisinopril 10 mg daily. Plan is to continue the present management. 07/03/2018-patient's blood pressure today is 125/63. Stable. Presently on amlodipine 10 mg daily, lisinopril 10 mg p.o. daily plan is to continue the present management. 07/04/2018 patient blood pressure today is 121/70. Stable. On amlodipine 10 mg daily, lisinopril 10 mg daily. Patient is advised to continue the medication at home. - Additional Information Resuscitation Status: Full Code Home Medications: Morphine Sulfate [Morphine Ir 15 mg Tablet] 15 mg PO Q12 06/13/18 Oxycodone HCl 5 mg PO Q4HP PRN 06/13/18 History of Present Illness History of Present Illness: IAN SORENSON is a 58 year old male 57 year old male with a past medical history of alpha 1 antitrypsin deficiency, tobacco dependence and recent diagnosis of stage IV lung cancer with metastasis to liver and left femur. Under the care of Dr. Knowles undergoing palliative care with radiation to the hip. Patient presents 4 days after a fall at home during which she heard a popping sound followed by intractable pain. In the emergency room is found to have a pathological fracture of the left hip. He receives symptomatic management and referred to the hospitalist for admission. Patient denies chest pain, shortness of breath, nausea or vomiting. Complains of constipation. Hospital Course Hospital Course: 07/04/[id number]-efol-old male with lung cancer and metastasis to the left femur admitted for a pathological fracture of the left hip. Status post open reduction and internal fixation of the left proximal femoral pathological fracture. No postop complications. Patient and family decided to go home with hospice care. Physical Exam Vital Signs: Temp Pulse Resp BP Pulse Ox 97.8 F 102 H 20 121/67 94 07/04/18 11:14 07/04/18 11:14 07/04/18 11:14 07/04/18 11:14 07/04/18 11:14 Intake & Output 07/03/18 07/04/18 07/05/18 06:59 06:59 06:59 Intake Total 5137 4626 1000 Output Total 1000 1250 Balance 4137 3376 1000 Weight 85.4 kg 86.6 kg General appearance: PRESENT: other - Moderate to severe distress. Head exam: PRESENT: atraumatic Eye exam: PRESENT: PERRLA Mouth exam: PRESENT: moist, tongue midline Teeth exam: PRESENT: poor dentation Neck exam: ABSENT: carotid bruit, JVD, lymphadenopathy, thyromegaly Respiratory exam: PRESENT: decreased breath sounds Cardiovascular exam: PRESENT: tachycardia GI/Abdominal exam: PRESENT: other - Distended abdomen with bowel sounds present. Gentrourinary exam: PRESENT: scrotal swelling Extremities exam: PRESENT: full ROM. ABSENT: calf tenderness, clubbing, pedal edema Neurological exam: PRESENT: alert, awake, oriented to person, oriented to place, oriented to time, oriented to situation, CN II-XII grossly intact. ABSENT: motor sensory deficit Results Laboratory Results: 06/29/18 05:55 06/29/18 05:55 06/26/18 06/26/18 06/26/18 02:25 02:25 09:09 Creatine Kinase 34 L 40 L CK-MB (CK-2) 0.55 Troponin I < 0.012 06/26/18 06/26/18 06/26/18 09:09 14:25 14:25 Creatine Kinase 45 L CK-MB (CK-2) 0.70 0.78 Troponin I < 0.012 < 0.012 Impressions: Lower Extremity CT 06/25/18 18:28 IMPRESSION: 1. Acute impacted and slightly angulated pathologic fracture of the femoral neck and intertrochanteric region, at site of previously demonstrated lytic bone lesion. Fluoroscopy 06/28/18 00:00 IMPRESSION: IMAGE(S) OBTAINED DURING PROCEDURE. Hip X-Ray 06/28/18 00:00 IMPRESSION: IMAGE(S) OBTAINED DURING PROCEDURE. Chest X-Ray 07/01/18 00:00 IMPRESSION: NO ACUTE RADIOGRAPHIC FINDING IN THE CHEST. Head CT 07/03/18 00:00 IMPRESSION: CHRONIC CHANGES OF ATROPHY AND MICROVASCULAR ISCHEMIA. NO EVIDENCE OF ACUTE PROCESS. EVIDENCE OF ACUTE STROKE: NO. Venous Doppler Study 07/04/18 07:45 IMPRESSION: NO EVIDENCE OF DVT OR SVT IN THE LEFT LEG. Qualifiers - * PATIENT BEING DISCHARGED WITH ANY OF THE FOLLOWING DIAGNOSIS: No VTE patient discharged on overlapping Therapy?: No Plan Discharge Plan: Patient is going home with hospice care. Time Spent: Less than 30 Minutes
[2018-07-04 18:17] VITALS: BP 148/87
== END 2018-07-04 21:21 | disposition hospice, home (50) | DRG 478 ==
LOC: ER 14:24 → EH 22:48 → 4S 06-26 06:05
PROVIDERS: ADMIT Internal Medicine; ATTEND Internal Medicine
PROC: 0QB70ZX Excision of Left Upper Femur, Open Approach, Diagnostic (ICD-10-PCS; 2018-06-28)
PROC: 0QSC06Z Reposition Left Lower Femur with Intramedullary Internal Fixation Device, Open Approach (ICD-10-PCS; principal; 2018-06-28 07:30)
DX: M84.552A Pathological fracture in neoplastic disease, left femur, initial encounter for fracture (principal); C79.51 Secondary malignant neoplasm of bone; C34.90 Malignant neoplasm of unspecified part of unspecified bronchus or lung; C78.7 Secondary malignant neoplasm of liver and intrahepatic bile duct; F17.210 Nicotine dependence, cigarettes, uncomplicated; E88.01 Alpha-1-antitrypsin deficiency; K59.00 Constipation, unspecified; Z66 Do not resuscitate; Z51.5 Encounter for palliative care; I10 Essential (primary) hypertension; Z59.7 Insufficient social insurance and welfare support; Z86.19 Personal history of other infectious and parasitic diseases
CPT/HCPCS: 01230; 36415; 70450; 71045; 80048; 80053; 82550; 82553; 84484; 85025; 85027; 85610; 85730; 88305; 88311; 93005; 93010; 93971; 94640; 96374; 96375; 99285; C1713; C1769; J0131; J0360; J0690; J1170; J1644; J2060; J2250; J2270; J2405; J2550; J2704; J3010; J3490; J7030; J7120; J7620